=== PATIENT | female | born 1950 | race Caucasian/White ===

== ENCOUNTER → 2016-12-09 | Outpatient (CLI) | payer BC ==
[~2016-12-09] MED LIST: ACET-24 PO; ASPEC325 PO; CALC500C70 PO; CLIN300C2 PO; DOCU-94 PO; FRRG PO; LEVO500T19 PO; LISI20TA3 PO; MORP-157 PO; MULT-506 PO; POLY335019 PO; RXC5 PO; ULT50X PO; VITAMIN B-12 IM
--- NOTE | 2016-12-09 16:44 | MAMMOGRAPHY REPORT ---
BILATERAL DIGITAL SCREENING MAMMOGRAM WITH CAD: 12/09/2016 CLINICAL HISTORY: Routine screening. Patient has no complaints. TECHNIQUE: Bilateral CC, MLO, repeat cc views with the nipples in profile and repeat left MLO views were obtained. Current study was also evaluated with a Computer Aided Detection (CAD) system. COMPARISON: Comparison is made to exams dated: 01/31/2015 mammogram and 01/25/2014 mammogram - [facility] Catarino Adames. BREAST COMPOSITION: The tissue of both breasts is almost entirely fatty. FINDINGS: There are scattered benign-appearing punctate microcalcifications. No suspicious mass, ar chitectural distortion or cluster of suspicious microcalcifications is seen. IMPRESSION: ACR BI-RADS CATEGORY 1: NEGATIVE There is no mammographic evidence of malignancy. A 1 year screening mammogram is recommended. The p atient will receive written notification of the results. Approximately 10% of breast cancers are not detected with mammography. A negative mammographic repor t should not delay biopsy if a clinically suggestive mass is present. Yesica Fay M.D. ay/:12/09/2016 15:43:55 Yarn Dyer: Radha SOLOMON(R)(M), [facility] letter sent: Normal 1/2 BI-RADS Code: ACR BI-RADS Category 1: Negative
== END | disposition home or self-care (01) ==
LOC: C.MAMM 13:28
PROVIDERS: ATTEND Family Medicine
DX: Z12.31 Encounter for screening mammogram for malignant neoplasm of breast (principal)

== ENCOUNTER 2017-03-09 05:08 | Inpatient (IN) | payer BC, OTHER ==
[2017-02-09 10:47] VITALS: Ht 160 cm; Wt 139.6 kg
--- NOTE | 2017-02-09 11:17 | PAT Medication Instructions ---
Service Date Feb 09, 2017. Current Home Medication List Calcium/Vitamin D (Os-Brady 500 Plus D), 2 TAB PO QAM Clindamycin Hcl (Cleocin), 600 MG PO UD PRN for RN Lisinopril (Prinivil), 20 MG PO QAM Multivitamin (Multivitamin), 1 TAB PO QAM [Vitamin B-12], 1,000 MCG IM Q3 MONTHS Medication Instructions For Your Scheduled Surgery Clindamycin Hcl (Cleocin), 600 MG PO UD PRN for RN (prior to dental procedures only) - Continue as directed: [Vitamin B-12], 1,000 MCG IM Q3 MONTHS - Hold the following medications the morning of surgery: Lisinopril (Prinivil), 20 MG PO QAM Multivitamin (Multivitamin), 1 TAB PO QAM Calcium/Vitamin D (Os-Brady 500 Plus D), 2 TAB PO QAM If you have any questions please call us at [phone] or [phone] or [phone]
--- NOTE | 2017-02-09 12:04 | DIAGNOSTIC IMAGING REPORT ---
CHEST PREADMISSION(PA/LAT) CLINICAL HISTORY: PAT preoperative evaluation COMPARISON STUDY: 09/14/2013 FINDINGS: The bones soft tissues and hemidiaphragms are normal. The cardiomediastinal silhouette is normal. The lungs are clear. The pulmonary vasculature is normal. IMPRESSION: Negative chest. The above report was generated using voice recognition software. It may contain grammatical, syntax or spelling errors. Electronically signed by: Yves Burroughs M.D. 02/09/2017 12:02 PM Dictated Date/Time: 02/09/2017 12:02 PM
[2017-02-09 12:28] LABS: BASO % 0.3 %; BASO ABS # 0.02 K/uL (0-0.2); COMPLETE YES; EOS % 2.4 %; HEMATOCRIT 40.2 % (37-47); IG% 0.3 %; LYMPH % 35.8 %; LYMPH ABS # 2.11 K/uL (1.2-3.4); MEAN CELL VOLUME 92.8 fL (80-100); MEAN CORPUSCULAR HEMOGLOBIN 30.9 pg (25-34); MEAN CORPUSCULAR HGB CONC 33.3 g/dl (32-36); MEAN PLATELET VOLUME 10.9 fL (7.4-10.4); MONO % 8.1 %; NEUT % 53.1 %; PLATELET COUNT 193 K/uL (130-400); RED BLOOD COUNT 4.33 M/uL (4.2-5.4); WHITE BLOOD COUNT 5.89 K/uL (4.8-10.8)
[2017-02-09 13:32] LABS: BUN/CREATININE RATIO 18.2 (10-20); C-REACTIVE PROTEIN 0.71 mg/dl (0-0.29); CALCIUM 9.3 mg/dl (8.5-10.1); CREATININE 1.1 mg/dl (0.60-1.20); POTASSIUM 4.5 mmol/L (3.5-5.1)
--- NOTE | 2017-03-05 08:13 | HISTORY & PHYSICAL EXAMINATION ---
DATE OF ADMISSION: 03/09/2017 CHIEF COMPLAINT: Left knee pain. HISTORY OF PRESENT ILLNESS: The patient is a 67-year-old female who is now 3 years out from right knee replacement doing well. She has a long history of left knee pain and discomfort. She describes it has gotten worse over the past several years. Initially, she was pretty responsive to injections, but this has become less successful over time. She has constant pain in her knee. She has pain with every step. The more she walks, the more she hurts and the more she limps. She has got up with the pain and would like to have her left knee replaced. Once again, she is happy with her right knee replacement. Her walking tolerance is limited. She has nighttime pain. PAST MEDICAL HISTORY: 1. Morbid obesity with a BMI of 55. 2. Varicose veins. PREVIOUS SURGICAL HISTORY: Include: 1. Gastric bypass surgery in 2001. 2. Multiple hernia operations. 3. Cholecystectomy. 4. Hysterectomy. 5. Tonsillectomy. 6. Appendectomy. 7. Right knee replacement done 10/06/2013. ALLERGIES: CECLOR, WHICH CAUSES HIVES, ERYTHROMYCIN, AMOXICILLIN, SULFA, CEPHALOSPORINS. CURRENT MEDICINES: Include: 1. Lisinopril 20 mg a day. 2. Vitamin B12 every 3 months. 3. Calcium with D. 4. Vitamins. 5. 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 SOCIAL HISTORY: A 67-year-old white female. She is single. She does live by herself. Rare alcohol intake. FAMILY HISTORY: Significant for kidney cancer. REVIEW OF SYSTEMS: Negative for diabetes, neurologic problems, vascular problems, bleeding disorders. Denies any chest pain or shortness of breath. No history of DVT or PE. PHYSICAL EXAMINATION: GENERAL: Reveals a healthy pleasant, middle-aged female. She looks to be in reasonably good health. HEAD, EYES, EARS, NOSE, AND THROAT EXAMINATION: Benign. NECK: Supple. No lymphadenopathy. LUNGS: Clear to auscultation. HEART: Regular rate and rhythm. ABDOMEN: Soft, nontender, nondistended. EXTREMITY EXAMINATION: Grossly neurovascularly intact except as follows: Examination of the left knee reveals the patient walks with a waddling gait. She does limp on the left side. She has got a large soft tissue envelope. Small knee effusion. Range of motion 0-120. Good straight leg raise. No pain with hip motion. X-RAYS: X-rays of the left knee were reviewed. It shows advanced left knee DJD. She has complete loss of her medial joint space. She has got diffuse osteopenia. 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 ASSESSMENT: A 67-year-old white female with history of gastric bypass surgery in the past as well as knee replacement 3 years ago with advanced left knee degenerative joint, unresponsive to conservative treatment. She would like to have her left knee replaced. PLAN: We are going to the operating room and do a left total knee replacement. The risks and benefits of this procedure were explained to the patient including but not limited to DVT, PE, , infection, neurological injury, vascular injury, bleeding problems, pain, limited range of motion, stiffness, failure to relieve her symptoms, incomplete relief of symptoms, need for further surgery in the future, fracture, leg length inequality, nerve palsy, persistent pain, failure of the implants, failure of her bone, loosening and need for revision surgery. The patient understands and desires to proceed. Informed consent was obtained. The patient does have this allergy to cephalosporins and will likely give her vancomycin preoperatively. We may need to use a stem in the tibia due to her osteoporosis. She is planning to be discharged to home and her daughter is going to come stay with her along with some home health.
[2017-03-09] VITALS (9 sets, daily range): BP systolic 97–131; BP diastolic 61–75; PULSE 67–83; TEMP 36.3–36.8; O2SAT 92–100
[~2017-03-09] VITALS: Ht 160 cm; Wt 139.6 kg
[~2017-03-09 05:08] MED LIST changes: -ACET-24 PO; -ASPEC325 PO; -DOCU-94 PO; -FRRG PO; -LEVO500T19 PO; -MORP-157 PO; -POLY335019 PO; -RXC5 PO; -ULT50X PO
[2017-03-09] MEDS ORDERED: SCOPOLAMINE 1.5 MG TDSY TD SCH (06:00)
[2017-03-09] MEDS ORDERED: LACTATED RINGER'S 1000ML 1,000 ML IV SCH ×2 (06:00)
[2017-03-09] MEDS ORDERED: ACETAMINOPHEN 500 MG TAB PO SCH (06:00)
[2017-03-09] MEDS ORDERED: BUPIVACAINE LIPOSOME 266 MG, BUPIVACAINE/EPINEPHRINE INJ 50 ML, SODIUM CHLORIDE 0.9% PF... INFIL SCH ×3 (06:00)
[2017-03-09] MEDS ORDERED: GABAPENTIN 300 MG CAP PO SCH (06:00)
[2017-03-09] MEDS ORDERED: LACTATED RINGER'S 1000ML 500 ML IV ONE (06:00)
[2017-03-09] MEDS ORDERED: VANCOMYCIN INJ 2,000 MG in SODIUM CHLORIDE 0.9% 500ML 500 ML IV SCH ×2 (06:00→18:00)
[2017-03-09] MEDS ORDERED: FAMOTIDINE 20 MG TAB PO SCH (06:00)
[2017-03-09] MEDS ORDERED: METOCLOPRAMIDE HCL 10 MG TAB PO SCH (06:00)
[2017-03-09] MEDS ORDERED: PROPOFOL IV EMULSION 10 MG/ML 20 ML VIAL IV ONE ×3 (06:13→07:32)
[2017-03-09] MEDS ORDERED: MIDAZOLAM HCL 1 MG/ML 2ML VIAL ONE ×3 (06:13→07:56)
[2017-03-09] MEDS ORDERED: FENTANYL CITRATE INJ 50 MCG/1 ML 2 ML VIAL ONE (06:13)
[2017-03-09] MEDS ORDERED: BUPIVACAINE 0.5 % 5 MG/1 ML PF 10ML VIAL ONE (06:25)
[2017-03-09] MEDS ORDERED: BUPIVACAINE 0.25% 30 ML VIAL ONE (06:25)
[2017-03-09] MEDS ORDERED: SODIUM CHLORIDE 0.9% PF 50 ML VIAL ONE (06:28)
[2017-03-09] MEDS ORDERED: BUPIVACAINE LIPOSOME 1/3% 266 MG/20 ML VIAL INFIL ONE (06:28)
[2017-03-09] MEDS ORDERED: TRANEXAMIC ACID INJ 1,000 MG in SODIUM CHLORIDE 0.9% 100ML 100 ML IV SCH ×2 (06:30→12:00)
--- NOTE | 2017-03-09 06:49 | History & Physical Bridge Note ---
H&P Re-Evaluation Bridge Note: I have examined the patient, reviewed the History & Physical and in the interval since the performance of the History & Physical I have noted the following changes of clinical significance: No changes noted
[2017-03-09] MEDS ORDERED: BUPIVACAINE/EPINEPHRINE 0.5% MPF 1:200,000 10 ML VIAL ONE (07:09)
[2017-03-09] MEDS ORDERED: BACITRACIN 50000 UNIT VIAL ONE (07:10)
[2017-03-09] MEDS ORDERED: ONDANSETRON INJ 2 MG/ML 2 ML VIAL ONE (07:16)
[2017-03-09] MEDS ORDERED: EpHEDrine SULFATE 50MG/5ML SYR ONE (07:16)
[2017-03-09] MEDS ORDERED: PHENYLEPHRINE 100MCG/ML 5ML SYR ONE (07:16)
[2017-03-09] MEDS ORDERED: PHENYLEPHRINE HCL INJ 10 MG/ML VIAL ONE (07:31)
[2017-03-09] MEDS ORDERED: EpHEDrine SULFATE INJ 50 MG/ML AMP ONE (07:31)
[2017-03-09] MEDS ORDERED: ONDANSETRON INJ 2 MG/ML 2 ML VIAL IV PRN (08:00)
[2017-03-09] MEDS ORDERED: EpHEDrine SULFATE INJ 50 MG/ML AMP IV PRN (08:00)
[2017-03-09] MEDS ORDERED: ATROPINE SULFATE 0.1 MG/ML 5ML SYR IV PRN (08:00)
--- NOTE | 2017-03-09 09:03 | [facility] Post Operative Brief Note ---
Immediate Operative Summary Operative Date Mar 09, 2017. Pre-Operative Diagnosis Left Knee Degenerative Joint Disease Post-Operative Diagnosis Left Knee Degenerative Joint Disease Procedure(s) Performed Left Total Knee Arthroplasty, Cemented Surgeon Dr. Hurst Consulting Practice Manager Surgeon(s) Wisam Pinzon PA-C Estimated Blood Loss 50 mL Findings Left Knee DJD Fluids (cc crystalloids) 2000 cc Specimens A: Left Knee Bone and Tissue Drains None Anesthesia Spinal Complication(s) None Disposition Recovery Room / PACU
[2017-03-09] MEDS ORDERED: BISACODYL 10 MG SUPP PR PRN (09:15)
[2017-03-09] MEDS ORDERED: ALUMINUM/MAGNESIUM/SIMETH (MAALOX MAX) 30 ML UDC PO PRN (09:15)
[2017-03-09] MEDS ORDERED: ZOLPIDEM TARTRATE 5 MG TAB PO PRN (09:15)
[2017-03-09] MEDS ORDERED: MAGNESIUM HYDROXIDE SUSP 30 ML UDC PO PRN (09:15)
[2017-03-09] MEDS ORDERED: HYDROmorphone INJ 0.5 MG/0.5 ML SYR IV PRN (09:15)
[2017-03-09] MEDS ORDERED: METOCLOPRAMIDE HCL INJ 5 MG/ML 2 ML VIAL IV PRN (09:15)
--- NOTE | 2017-03-09 09:28 | DIAGNOSTIC IMAGING REPORT ---
TWO VIEWS LEFT KNEE CLINICAL HISTORY: Postoperative examination. FINDINGS: AP and crosstable lateral portable views of the left knee are obtained. A left knee arthroplasty is in near anatomic alignment. There has been undersurface remodeling of the patella. No acute fracture is seen. There are expected postoperative changes around the knee including skin clips, soft tissue edema, and subcutaneous gas. IMPRESSION: Expected postoperative changes status post left knee arthroplasty. No acute fracture is seen. Electronically signed by: Noel Pedroza M.D. 03/09/2017 9:27 AM Dictated Date/Time: 03/09/2017 9:27 AM
--- NOTE | 2017-03-09 09:38 | Anesthesiology Progress Note ---
Anesthesia Post Op Note Date & Time Mar 09, 2017 at 09:38 Vital Signs Pain Intensity: 0 Vital Signs Past 12 Hours Date Time Temp Pulse Resp B/P (MAP) Pulse Ox O2 Delivery O2 Flow Rate FiO2 03/09/17 09:35 73 16 110/45 100 Nasal Cannula 3 03/09/17 09:25 74 16 106/72 100 Nasal Cannula 3 03/09/17 09:15 73 16 137/59 100 Nasal Cannula 3 03/09/17 09:08 36.2 83 16 98/60 96 Nasal Cannula 3 03/09/17 05:59 36.8 70 18 128/61 Room Air Notes Mental Status: alert / awake / arousable, participated in evaluation Pt Amnestic to Procedure: No Nausea / Vomiting: adequately controlled Pain: adequately controlled Airway Patency, RR, SpO2: stable & adequate BP & HR: stable & adequate Hydration State: stable & adequate Neuraxial Anesthesia: was administered, sensory block is resolving Anesthetic Complications: no major complications apparent Anesthetic Complications: level of amnesia was appropriate for mac
--- NOTE | 2017-03-09 11:18 | OPERATIVE REPORT ---
DATE OF OPERATION: 03/09/2017 SURGEON: Dr. Charlie Hurst. PEN MAKER: MERE Li PREOPERATIVE DIAGNOSIS: Left knee degenerative joint disease. POSTOPERATIVE DIAGNOSIS: Same. PROCEDURE PERFORMED: Left cemented posterior stabilized total knee arthroplasty. COMPLICATIONS: None. ESTIMATED BLOOD LOSS: 50 mL. FLUID REPLACEMENT: 2000 mL crystalloid fluid replacement. ANESTHESIA: Spinal with adductor canal block. DRAINS: None. SPECIMENS: Left knee sent for pathology. TOURNIQUET TIME: 70 minutes at 350 mmHg. OPERATIVE INDICATIONS: The patient is a 67-year-old morbidly obese female with a BMI of 55, who has had a long history of bilateral knee pain and discomfort. She underwent a right knee replacement 3 years ago and has done well with this. She did have gastric bypass surgery many years ago. She continues to be bothered by limiting left knee pain. She failed conservative treatment. X-rays revealed advanced left knee DJD and she elected to proceed with total knee arthroplasty. OPERATIVE FINDINGS: Operative findings revealed advanced left knee DJD. She had grade 4 [id number] disease in all 3 compartments, most severe in the medial and patellofemoral compartments. She had a varus deformity to her knee. Very large soft tissue envelope. She had osteophytes in all 3 compartments. Her bone was fairly osteopenic. OPERATIVE IMPLANTS: Operative implants consisted of: 1. Biomet Vanguard size 62.5 left posterior stabilized femoral component. 2. Biomet size 71 tibial tray. 3. A 10 mm posterior stabilized polyethylene insert. 4. A 31 x 8 All-Poly patella. OPERATIVE PROCEDURE: The patient taken to the operating room, identified and placed on the operating table in supine position. All contact areas were appropriately padded. IV antibiotics were provided by anesthesia team. A spinal anesthetic and adductor canal block provided in the holding area. Lane catheter was placed in sterile fashion. A left thigh tourniquet was then placed. Left lower extremity was then prepped and draped in the usual sterile fashion. The left leg was elevated and exsanguinated with Esmarch and tourniquet was placed at 350 mmHg. An anterior approach of the left knee was then performed through a longitudinal incision centered over the patella. Sharp dissection was carried out through the subcutaneous tissues down to the level of the extensor mechanism. Medial parapatellar arthrotomy incision was made. Some subperiosteal dissection was carried out medially. The fat pad was resected from beneath the patellar tendon. The lateral patellofemoral ligament was released. The patella was subluxated laterally and the knee was flexed. The osteophytes were taken off the distal femur. The ACL and PCL were then released from the distal femur. Even doing this, I had difficulty exposing the tibia. Therefore, we elected to cut the femur first. The distal femur was entered with a sharp drill. The intramedullary canal was suctioned. A left 5 degree valgus cutting guide was placed. Distal femoral cutting block was pinned in place. Distal femoral cut was made to take an additional 3 mm of bone off the distal femur. The femur was then sized to a size 62.5. We downsized this slightly. The AP cutting block was pinned parallel to the epicondylar axis, which was 5 degrees of external rotation. The anterior cut, anterior chamfer, posterior cut, posterior chamfer cuts were made. Box cutting guide was placed and adjusted slightly lateral and the box cut was made. The knee was flexed. At this point, I could subluxate the tibia anteriorly. The tibial eminence was resected with the use of a saw. A long intramedullary tommy was placed. The cutting block was placed on the IM guide and the proximal tibial cut was made to remove 2 mm of bone from the most deficient aspect of the medial tibial plateau. Tibia was sized to a size 71. I tried to maximize coverage due to soft bone. Proximal tibial cut was made. Some osteophytes were taken off the medial and posteromedial side of the tibia. The femoral trial from inside the knee was flexed. The remnants of the medial and lateral menisci were excised. The osteophytes were taken off the posterior aspect of the femur. Trial femoral component was placed. Tibial tray was pinned in maximum external rotation and drill and stem punch were used to create defect in proximal tibia for the tibial tray. The knee was then trialed and a 10 mm insert fit most appropriately. Attention was then drawn to the patella. The patella was cleaned of all soft tissues. Patellar thickness measured 21 mm, cut down to 13. It was sized to a size 31 patella. The lateral osteophyte was removed. Some other additional osteophytes were removed from around the patella. The patella button was placed. Knee was taken through range of motion and the patella tracked nicely with no thumbs test. Attention was then drawn toward placement of the permanent components. All trial components were removed. A bone plug was placed in the distal femur to limit blood loss. I also placed a bone plug in the tibia to limit cement extravasation. The wound was irrigated with copious amounts of pulsatile lavage solution. A double batch of Palacos G cement was mixed. A left size 62.5 posterior stabilized femoral component, size 71 tibial tray, 10 mm posterior stabilized polyethylene insert, and a 31 x 8 All-Poly patella were then cemented in place. Knee was brought out into full extension until cement hardened. A final cement check was then performed. Pericapsular tissues were injected with 85 mL of a combination of 20 mL of Exparel, 30 mL of normal saline, and 25 mL of 0.5% Marcaine with epinephrine. The patient did receive 1 gram of tranexamic acid. The tourniquet was then let down for final tourniquet time of 70 minutes. Hemostasis was assured with use of electrocautery. The extensor mechanism was then closed with a combination of #1 PDS suture and #1 Vicryl suture in a [id number] fashion. Extensor mechanism was checked and found to be intact. Subcutaneous tissues were then closed with 2-0 Dexon suture in a buried interrupted fashion. Skin was closed with skin amirah. The leg was then cleaned and dried and a sterile dressing of Xeroform, 4 x 4, sterile cast padding and Timothy bandage were applied. The patient then transferred to the recovery room in stable condition. The patient tolerated the procedure well with no complications. All needle and sponge counts were correct at the end of the operation. I attest to the content of the Intraoperative Record and any orders documented therein. Any exception s are noted below.
[2017-03-09] MEDS ORDERED: PNEUMOCOCCAL POLYSACCHARIDES 25 MCG/0.5 ML VIAL/SYR IM. ONE (11:30)
[2017-03-09] MEDS ORDERED: PNEUMOCOCCAL ADMINISTRATION CHARGE ONE (11:30)
[2017-03-09] MEDS: KETOROLAC TROMETHAMINE 15 MG/ML VIAL IV. SCH ×3 (12:03→23:36)
[2017-03-09] MEDS: D5W AND 1/2NSS + 20MEQ KCL 1,000 ML IV SCH ×3 (12:20→23:35)
[2017-03-09] MEDS: FERROUS GLUCONATE 324 MG TAB PO SCH ×2 (12:22→18:06)
--- NOTE | 2017-03-09 13:32 | PROGRESS NOTE ---
DATE: 03/09/2017 DATE: 03/09/2017 SUBJECTIVE: A 67-year-old white female postop from a left knee replacement. She is doing well. Some pain but manageable. No chest pain or shortness of breath. Not feeling dizzy or lightheaded. OBJECTIVE: VITAL SIGNS: Temperature is 36.3. Vital signs stable. PHYSICAL EXAMINATION: GENERAL: Reveals a healthy pleasant elderly female. She is lying in bed, looks pretty comfortable. LUNGS: Clear to auscultation. HEART: Regular rate and rhythm. ABDOMEN: Soft, nontender, nondistended. EXTREMITY EXAMINATION: Grossly neurovascularly intact except as follows: Examination of the left lower extremity reveals the leg to be well aligned. Dressing is clean, dry and intact. She can dorsiflex and plantarflex her foot appropriately. She is neurologically intact. X-RAYS: X-rays of the left knee from recovery room were reviewed. It shows a cemented posterior stabilized total knee arthroplasty. The components looked to be in good position. No signs of problems. ASSESSMENT: A 67-year-old white female postop from a left knee replacement, doing well. Pain is controlled. She is neurologically intact. PLAN: 1. DVT prophylaxis including thigh-high TEDs, SCDs, and aspirin twice a day. 2. PT/OT. Weightbearing as tolerated. Left total knee protocol. 3. Pain control. Doing pretty well with current pain regimen. 4. IV antibiotics x24 hours. 5. Disposition: She is planning to be discharged to home with some home health. The family is going to assist in her care.
[2017-03-09] MEDS: ACETAMINOPHEN 500 MG TAB PO SCH ×2 (13:39→21:01)
[2017-03-09] MEDS: OXYCODONE HCL IR 5 MG TAB (IMMEDIATE RELEASE) PO PRN (13:42)
[2017-03-09] MEDS: DOCUSATE SODIUM 100 MG CAP PO SCH (21:01)
[2017-03-09] MEDS: SENNA 8.6 MG TAB PO SCH (21:01)
[2017-03-09] MEDS: TAPENTADOL ER 50 MG TABCR PO SCH (21:01)
[2017-03-09] MEDS: ASPIRIN 325 MG ECTAB PO SCH (21:01)
[2017-03-09] MEDS ORDERED: MORP-157 PO (21:47)
[2017-03-09] MEDS ORDERED: FRRG PO (21:47)
[2017-03-09] MEDS ORDERED: ACET-24 PO (21:47)
[2017-03-09] MEDS ORDERED: ASPEC325 PO (21:47)
[2017-03-09] MEDS ORDERED: RXC5 PO (21:47)
--- NOTE | 2017-03-09 21:49 | Discharge Instructions ---
Discharge Instructions Date of Service Mar 09, 2017. Admission Reason for Admission: Left Knee Degenerative Joint Disease Discharge Discharge Diagnosis / Problem: Left Knee Replacement Discharge Goals Goal(s): Decrease discomfort, Improve function, Increase independence, Improve disease control, Therapeutic intervention Activity Recommendations Activity Limitations: per Instructions/Follow-up section Weightbearing Status: Left weightbearing . Instructions / Follow-Up Instructions / Follow-Up ACTIVITY RECOMMENDATIONS: Physical Therapy: * You will go to physical therapy three times each week for four to six weeks after your surgery in order to regain your knee range of motion and to retrain your knee to work properly. * It is just as important to make sure you are getting your knee perfectly straight as it is to regain your knee bend. * Taking a pain pill an hour before therapy can help you have a more productive and comfortable therapy session. Home Exercise: * You were shown a series of exercises (heel props, heel slides, etc.) in the hospital. Do these exercises three to four times each day including the exercises you were shown in physical therapy. Walking: * Get up and walk several times each day. For the first four weeks, try not to stand or walk for more than one hour at a time. If you do stand or walk for more than one hour, you will not hurt anything, but your knee and leg will likely swell. * As you feel comfortable, you may change from the walker or crutches to a cane and then to independent walking. MEDICATIONS: New Medicine: * You will likely be taking one or more of these medications: 1. MS Contin - A long-acting pain medication. Take 1 tablet twice a day for the first ten days to decrease your baseline level of pain. 2. Oxycodone - A quick and shorter-acting pain medication. Take one to two tablets every four to six hours to lessen your pain. 3. Iron Sulfate - Take three times each day for the month after surgery to help you replace the blood lost during surgery. 4. Aspirin - Thins your blood to lessen the chance of forming a blood clot. * The most common side effects of pain medicine and iron are nausea and constipation. If nausea or constipation is too much of a problem or if you have any questions about your new medicines or doses, call [facility] at . We will try to help you manage these issues. VERY IMPORTANT TO READ AND REVIEW" Pain: * The immediate post-operative period after knee replacement surgery is often quite painful. * You are given a prescription for pain medicine. You should take it, as directed, when you need it, especially before physical therapy and before going to bed. Pain that interferes with sleep is very common and can last several months. * You will likely need pain medicine for the first four to six weeks. It will not stop all of the pain. The pain will lessen and as you feel better, you may change to milder pain medicine such as Tylenol. * The most common side effects of pain medicine are nausea and constipation, so don't take more than you need. SPECIAL CARE INSTRUCTIONS: TEDs/Elastic Stockings: * The white elastic stockings help limit swelling and prevent blood clots from forming in your legs. The more you wear them, the more they work. * Wear them for six weeks after knee replacement surgery and four weeks after partial knee replacement. Prevention of Infection: * Take antibiotics one hour before any dental cleaning, dental work, urological procedure, gastrointestinal procedure or any invasive surgery in order to prevent your new joint from getting infected. * You may get the antibiotics from the doctor performing the procedure or you may call our office at before and we will call in a prescription to the pharmacy of your choice. Things to Watch For: * Drainage from the incision site that occurs more than one week after your surgery. * Severely increased knee/leg pain or swelling. * Increased redness at the incision site. * Fever above 102 degrees Fahrenheit. * Unusual chest pain or shortness of breath. * Unusual pain or burning with urination. Call [facility] at with any of the above problems or if you have any questions about your medicines or recovery. FOLLOW UP VISIT: Make an appointment to see your doctor for approximately two weeks after surgery for a progress check and staple removal by calling the office at . Current Hospital Diet Patient's current hospital diet: Regular Diet Discharge Diet Recommended Diet: Regular Diet Procedures Procedures Performed: Left Total Knee Arthroplasty, Cemented Pending Studies Studies pending at discharge: no Medical Emergencies . Who to Call and When: Medical Emergencies: If at any time you feel your situation is an emergency, please call [phone] immediately. . Non-Emergent Contact Non-Emergency issues call your: Surgeon . "Provider Documentation" section prepared by Charlie Husrt. . VTE Core Measure Inpt VTE Proph given/why not?: Other Anticoagulation, T.E.D. Stockings, SCD's
[2017-03-10 03:56] VITALS: BP 93/60; PULSE 78; TEMP 36.7; O2SAT 93
[2017-03-10] MEDS: OXYCODONE HCL IR 5 MG TAB (IMMEDIATE RELEASE) PO PRN ×3 (04:29→14:43)
[2017-03-10] MEDS: D5W AND 1/2NSS + 20MEQ KCL 1,000 ML IV SCH (04:58)
[2017-03-10 05:29] LABS: HEMATOCRIT 30.6 % (37-47); MEAN CELL VOLUME 92.4 fL (80-100); MEAN CORPUSCULAR HEMOGLOBIN 30.5 pg (25-34); MEAN PLATELET VOLUME 10.2 fL (7.4-10.4); PLATELET COUNT 121 K/uL (130-400); RED BLOOD COUNT 3.31 M/uL (4.2-5.4); WHITE BLOOD COUNT 5.76 K/uL (4.8-10.8)
[2017-03-10] MEDS: KETOROLAC TROMETHAMINE 15 MG/ML VIAL IV. SCH ×3 (05:35→18:19)
[2017-03-10] MEDS: ACETAMINOPHEN 500 MG TAB PO SCH ×3 (05:36→21:05)
[2017-03-10 05:48] LABS: BUN/CREATININE RATIO 15.4 (10-20); CALCIUM 7.8 mg/dl (8.5-10.1); CREATININE 1.1 mg/dl (0.60-1.20); POTASSIUM 4.5 mmol/L (3.5-5.1)
[2017-03-10 07:04] VITALS: BP 115/69; PULSE 79; TEMP 36.8; O2SAT 92
[2017-03-10] MEDS ORDERED: LISINOPRIL 20 MG TAB PO SCH (09:00)
[2017-03-10] MEDS ORDERED: MULTIVITAMIN TAB PO SCH (09:00)
[2017-03-10] MEDS: TAPENTADOL ER 50 MG TABCR PO SCH ×2 (09:37→21:03)
--- NOTE | 2017-03-10 09:37 | PROGRESS NOTE ---
DATE: 03/10/2017 SUBJECTIVE: A 67-year-old female postop day 1 from a left total knee replacement. She is doing pretty well. Pretty painful at night but doing better after she has taken some pain medicine this morning. Denies any chest pain or shortness of breath. Not feeling dizzy or lightheaded. OBJECTIVE: VITAL SIGNS: Temperature 36.8. Vital signs stable. PHYSICAL EXAMINATION: GENERAL: Reveals a healthy, pleasant middle-aged female. She is sitting up in her bedside chair, looks pretty comfortable. EXTREMITIES: Examination of the left leg reveals the leg to be well aligned. Dressing is clean, dry and intact. No significant drainage. She can dorsiflex and plantarflex her foot appropriately. LABORATORY DATA: Hemoglobin 10.1, hematocrit 30.6. Electrolytes are stable. ASSESSMENT: A 67-year-old white female postop day 1 from left knee replacement, doing pretty well. Pain is reasonably well controlled. She is neurologically intact. PLAN: 1. DVT prophylaxis including thigh-high TEDs, SCDs and aspirin twice a day. 2. PT/OT. Weightbearing as tolerated. Left total knee protocol. 3. Pain control. Doing pretty well with current pain regimen. 4. Disposition: She is planning to be discharged to home with some home health once adequately recovered.
[2017-03-10] MEDS: MULTIVITAMIN TAB PO SCH (09:38)
[2017-03-10] MEDS: DOCUSATE SODIUM 100 MG CAP PO SCH ×2 (09:38→21:03)
[2017-03-10] MEDS: FERROUS GLUCONATE 324 MG TAB PO SCH ×3 (09:39→18:19)
[2017-03-10] MEDS: PANTOprazole SOD 40 MG TAB PO SCH (09:39)
[2017-03-10] MEDS: CALCIUM 600MG + VIT D 400 IU TAB PO SCH (09:39)
[2017-03-10] MEDS: ASPIRIN 325 MG ECTAB PO SCH ×2 (09:40→21:03)
[2017-03-10 11:00] VITALS: BP 91/57; PULSE 71; TEMP 36.7; O2SAT 90
[2017-03-10] MEDS: ONDANSETRON INJ 2 MG/ML 2 ML VIAL IV PRN (14:29)
[2017-03-10 15:05] VITALS: BP 98/61; PULSE 59; TEMP 36.7; O2SAT 92
[2017-03-10] MEDS: SENNA 8.6 MG TAB PO SCH (21:04)
[2017-03-10 22:54] VITALS: BP 112/62; PULSE 67; TEMP 36.7; O2SAT 94
[2017-03-11] VITALS (11 sets, daily range): BP systolic 64–114; BP diastolic 51–73; PULSE 63–93; TEMP 36.7–37; O2SAT 93–100
[2017-03-11] MEDS: KETOROLAC TROMETHAMINE 15 MG/ML VIAL IV. SCH ×2 (00:24→05:14)
[2017-03-11] MEDS: ACETAMINOPHEN 500 MG TAB PO SCH ×3 (05:14→22:09)
[2017-03-11] MEDS: OXYCODONE HCL IR 5 MG TAB (IMMEDIATE RELEASE) PO PRN (07:10)
[2017-03-11] MEDS: FERROUS GLUCONATE 324 MG TAB PO SCH ×3 (08:30→17:10)
--- NOTE | 2017-03-11 08:49 | Orthopedic Progress Note ---
Orthopedic Progress Note Date of Service Mar 11, 2017. Subjective Post OP Day: 2 Additional Notes: Pain controlled. c/o lightheadedness. She was seen and examined by Dr. Bazzi today. Objective N/V intact, dressing C/D/I, A&O x3, toes mobile Date Time Temp Pulse Resp B/P (MAP) Pulse Ox O2 Delivery O2 Flow Rate FiO2 03/11/17 08:00 37.0 73 16 87/53 (64) 94 Room Air 03/11/17 07:00 Room Air 03/10/17 22:54 36.7 67 22 112/62 (79) 94 Room Air 03/10/17 20:01 Room Air 03/10/17 16:50 Room Air 03/10/17 15:05 36.7 59 16 98/61 (73) 92 Room Air 03/10/17 11:00 36.7 71 16 91/57 (68) 90 Room Air Assessment & Plan Assessment: POD #2 LEFT TKA Plan: Patient was hypotensive again when vitals checked after rounds. She was lightheaded. She was assisted back to bed and placed supine. No chest pain or SOB. We will give her a fluid bolus this morning and recheck her blood pressure. Hold pain medication and lisinopril this morning. Discharge Planning Discharge Planning: home with home health (Plan to discharge home today depending how she does with PT and the lightheadedness. She had some anemia. Continue iron. We'll hold lisinopril today. ) Pain Management: other (continue current pain management. ) DVT Prophylaxis: TEDs, SCDs, ASA Therapy: Physical Therapy
[2017-03-11] MEDS: ONDANSETRON INJ 2 MG/ML 2 ML VIAL IV PRN (08:53)
[2017-03-11] MEDS: TAPENTADOL ER 50 MG TABCR PO SCH ×2 (09:00→20:34)
[2017-03-11] MEDS: MULTIVITAMIN TAB PO SCH (09:00)
[2017-03-11] MEDS: DOCUSATE SODIUM 100 MG CAP PO SCH ×2 (09:00→20:34)
[2017-03-11] MEDS: CALCIUM 600MG + VIT D 400 IU TAB PO SCH (09:00)
[2017-03-11] MEDS ORDERED: SODIUM CHLORIDE 0.9% 500ML 500 ML IV STA (09:10)
[2017-03-11] MEDS ORDERED: NURSING VERBAL MED ORDER ONE (09:15)
[2017-03-11] MEDS ORDERED: SODIUM CHLORIDE 0.9% 1000ML 1,000 ML IV SCH (10:00)
[2017-03-11] MEDS: ASPIRIN 325 MG ECTAB PO SCH ×2 (10:41→20:34)
[2017-03-11] MEDS: PANTOprazole SOD 40 MG TAB PO SCH (10:42)
[2017-03-11] MEDS ORDERED: TRAMADOL HCL 50 MG TAB PO PRN (15:00)
--- NOTE | 2017-03-11 15:49 | Medical Consult ---
Consultation Date of Consultation: Mar 11, 2017. Attending Physician: Charlie Hurst M.D. Reason for Consultation: Hypotension History of Present Illness This is a 67 yo F with PMHx of morbid obesity, HTN, osteoarthritis, and varicose veins who presented for an elective LKA by Dr. Hurst on 03/09/17, now POD #2. Hospital medicine has been consulted for hypotension. The patient normally has high BP and takes lisinopril 20 mg daily. This was held the past 2 days. She reports feeling lightheaded/dizzy once yesterday, and then again this morning. At that time her BP was checked and was 64/51, so was given NSS 500mL bolus. At present her BP remains low at 76/56. She reports needing to take pain medication about every 4 hours for pain, especially prior to working with PT/OT. Her plans for going home include home health PT/OT. Past Medical/Surgical History Medical Problems: (1) Biliary colic Status: Acute (2) Right upper quadrant abdominal pain Status: Acute Morbid Obesity Hypertension Surgical Hx: 1. Gastric bypass surgery in 2001. 2. Multiple hernia operations. 3. Cholecystectomy. 4. Hysterectomy. 5. Tonsillectomy. 6. Appendectomy. 7. Right knee replacement done 10/06/2013. Family History COPD (chronic obstructive pulmonary disease) MOTHER Carcinoma of kidney MOTHER BROTHER Coronary artery disease MOTHER GI bleeding FATHER Gallbladder disease MOTHER SISTER Hypertension BROTHER Social History Smoking Status: Never Smoker Drug Use: none Allergies Coded Allergies: Erythromycin (Verified Allergy, Severe, ERYTHEMA, ANALPHYLAXIS, 03/09/17) Cephalosporins (Verified Allergy, Intermediate, HIVES, 03/09/17) Penicillins (Verified Allergy, Intermediate, HIVES, 03/09/17) Sulfa Drugs (Verified Allergy, Mild, RASH, 03/09/17) Cefaclor (Verified Allergy, Unknown, UNKNOWN, 03/09/17) Nitrates, Organic (Verified Allergy, Unknown, UNKNOWN, 03/09/17) Nitrofurantoin (Verified Adverse Reaction, Severe, INEFFECTIVE, 03/09/17) Current Inpatient Medications Current Inpatient Medications Medications (Trade) Dose Ordered Sig/[place] Route Start Time Stop Time Status Last Admin Dose Admin Miscellaneous (Remove Transderm-Scop Patch) 1 ea Q72H N/A 03/12/17 06:00 03/12/17 06:01 Oxycodone HCl (Roxicodone Immediate Rel Tab) 1 TABLET FOR PAIN RATING... Q4H PRN PO 03/09/17 09:15 03/23/17 09:14 Future Hold 03/11/17 07:10 10 MG Acetaminophen (Tylenol Tab) 1,000 mg Q8 PO 03/09/17 14:00 04/08/17 13:59 03/11/17 14:29 1,000 MG Magnesium Hydroxide (Milk Of Magnesia Susp) 30 ml Q6H PRN PO 03/09/17 09:15 04/08/17 09:14 Bisacodyl (Dulcolax Supp) 10 mg DAILY PRN [place] 03/09/17 09:15 04/08/17 09:14 Senna (Senokot Tab) 17.2 mg HS PO 03/09/17 21:00 04/08/17 20:59 03/10/17 21:04 17.2 MG Docusate Sodium (coLACE CAP) 100 mg BID PO 03/09/17 21:00 04/08/17 20:59 03/10/17 21:03 100 MG Al Hydrox/Mg Hydrox/Simethicone (Maalox Max Susp) 15 ml Q4H PRN PO 03/09/17 09:15 04/08/17 09:14 Zolpidem Tartrate (Ambien Tab) 5 mg HSZ PRN PO 03/09/17 09:15 04/08/17 09:14 Multivitamins (Multivitamin Tab) 1 tab QAM PO 03/10/17 09:00 04/09/17 08:59 03/10/17 09:38 1 TAB Ondansetron HCl (Zofran Inj) 4 mg Q6H PRN IV 03/09/17 09:15 04/08/17 09:14 03/11/17 08:53 4 MG Metoclopramide HCl (Reglan Inj) 10 mg Q6H PRN IV 03/09/17 09:15 04/08/17 09:14 03/11/17 10:41 10 MG Ferrous Gluconate (Ferrous Gluconate Tab) 324 mg TIDM PO 03/09/17 12:00 04/08/17 11:59 03/10/17 18:19 324 MG Pantoprazole Sodium (Protonix Tab) 40 mg QAM PO 03/10/17 09:00 04/09/17 08:59 03/11/17 10:42 40 MG Aspirin (Ecotrin Tab) 325 mg BID PO 03/09/17 21:00 04/08/17 20:59 03/11/17 10:41 325 MG Tapentadol (Nucynta Er Tab) 50 mg Q12 PO 03/09/17 21:00 04/08/17 20:59 03/10/17 21:03 50 MG Calcium/Vitamin D (Caltrate Plus Tab) 2 tab QAM PO 03/10/17 09:00 04/09/17 08:59 03/10/17 09:39 2 TAB Lisinopril (Zestril Tab) 20 mg QAM PO 03/10/17 09:00 04/09/17 08:59 Future Hold 03/10/17 09:39 20 MG Sodium Chloride 1,000 ml @ 100 mls/hr Q10H IV 03/11/17 10:00 04/10/17 09:59 03/11/17 10:42 100 MLS/HR Tramadol HCl (Ultram Tab) 50 mg Q6 PRN PO 03/11/17 15:00 04/10/17 14:59 UNV Sodium Chloride 1,000 ml @ 125 mls/hr Q8H IV 03/11/17 15:15 04/10/17 15:14 UNV Review of Systems Constitutional: No fever, No chills, No sweats Eyes: No worsening of vision, No redness ENT: No sore throat, No trouble swallowing Respiratory: No cough, No sputum, No wheezing, No shortness of breath, No dyspnea on exertion Cardiovascular: No chest pain, No palpitations Abdomen: No pain, No nausea, No vomiting, No diarrhea Musculoskeletal: + joint pain (L knee pain), No swelling, No calf pain Neurologic: No memory loss, No numbness/tingling, No balance problems Psychiatric: No depression symptoms, No anxiety Endocrine: No fatigue Hematologic / Lymphatic: No abnormal bleeding/bruising, No clotting problems Integumentary: No rash, No itch Physical Exam Date Time Temp Pulse Resp B/P (MAP) Pulse Ox O2 Delivery O2 Flow Rate FiO2 03/11/17 15:04 36.8 67 20 76/52 (60) 100 Nasal Cannula 3.0 03/11/17 13:43 88/55 (66) 03/11/17 11:16 36.7 70 18 106/65 (79) 97 Nasal Cannula 2.0 03/11/17 10:37 68 18 94/59 (71) 93 Room Air 03/11/17 10:16 94 Nasal Cannula 2.0 03/11/17 08:57 64/51 (55) 03/11/17 08:45 63 74/51 (59) 03/11/17 08:00 37.0 73 16 87/53 (64) 94 Room Air 03/11/17 07:00 Room Air 03/10/17 22:54 36.7 67 22 112/62 (79) 94 Room Air 03/10/17 20:01 Room Air 03/10/17 16:50 Room Air General Appearance: WD/WN, no apparent distress, + obese (morbid) Head: normocephalic, atraumatic Eyes: normal inspection, EOMI ENT: hearing grossly normal, pharynx normal Neck: supple, thyroid normal Respiratory/Chest: lungs clear, normal breath sounds, no respiratory distress, no accessory muscle use, + pertinent finding (on 3L via NC) Cardiovascular: regular rate, rhythm, no murmur, normal peripheral pulses Abdomen/GI: normal bowel sounds, non tender, soft Back: normal inspection Extremities/Musculoskelatal: no calf tenderness, no pedal edema, + pertinent finding (+ L knee s/p TKA, amirah in place, wound edges are everted, intact, no signs of surrounding erythema or edema. Scar over right knee from previous TKA) Neurologic/Psych: alert, normal mood/affect, oriented x 3 Skin: normal color, warm/dry Assessment & Plan This is a 67 yo F with PMHx of morbid obesity, HTN, osteoarthritis, and varicose veins who presented for an elective LKA by Dr. Hurst on 03/09/17, now POD #2. Hypotension - Will reduce pain medication: dc IV and allow oxycodone 5 mg with severe pain. Ok with acetaminophen and tramadol as ordered. - Pt received 500 mL bolus of NSS today. Will start on maintenance fluids at 125mL/hr for now - encouraged oral fluid intake. - Check orthostatics - Trend Hgb with am labs. Prior to surgery Hgb was 13, now 10. Likely will drop again tomorrow. Transfuse if symptomatic or < 8. - Pt reports she had similar episode with BP after cholecystectomy where her lisinopril was reduced by 50%, and upon recheck as outpatient they needed to resume her normal home dose of lisinopril. - Continue to hold lisinopril and likely can resume on d/c home Left TKA, pod #2 - DVT ppx per primary team with ASA 325 mg daily - Planned home health therapy/rehab upon discharge - PT/OT Morbid Obesity - BMI 54.5 - Pt s/p gastric bypass. - Continue diet and exercise recommendations and regimen DVT ppx: teds, asa CODE STATUS: FULL Thank you for allowing us to see Mrs. Ace, please do not hesitate to call with questions. We will follow along. PA Physician Supervision Note: I interviewed and examined the patient. Discussed with Diamond Molina PAC and agree with findings and plan as documented in the note. Any exceptions or clarifications are listed here: None Patient postoperatively from a total left knee replacement who has some postoperative hypotension and mild acute blood loss anemia . patient states that with her previous cholecystectomy she had a prolonged hypotensive episode postoperatively which prompted the inpatient physicians previously to hold her lisinopril, upon being discharged, her blood pressure significantly increased and she had to resume her lisinopril implying this may be a perioperative effect which will resolve on its own. Fluid bolus was already given with the maintenance fluid, Her acute blood postop blood loss anemia we'll actually slightly worsen by tomorrow given the ivf ordered, and she may require transfusion vital signs show blood pressure below heart rate is regular not persistently tachycardic Heart is regular without murmurs her lungs are clear her abdomen normoactive bowel sounds her left knee wound is clean dry and intact does not appear to be significant hematoma Perioperative hypotension continue intravenous fluid hydration until the morning care not to exceed 2 L follow postoperative acute blood loss anemia and hold antihypertensive medications at this time resuming them on discharge Documented By: Liam Duque
[2017-03-11] MEDS: SODIUM CHLORIDE 0.9% 1000ML 1,000 ML IV SCH ×2 (17:09→23:43)
[2017-03-11] MEDS: SENNA 8.6 MG TAB PO SCH (20:34)
[2017-03-12 02:44] VITALS: BP_SYST 110; BP_SYST 83; BP_SYST 97; BP_DIAS 53; BP_DIAS 63; BP_DIAS 72; PULSE 112; PULSE 76; PULSE 97
[2017-03-12 05:51] LABS: HEMATOCRIT 27.4 % (37-47); MEAN CELL VOLUME 91.9 fL (80-100); MEAN CORPUSCULAR HEMOGLOBIN 31.5 pg (25-34); MEAN CORPUSCULAR HGB CONC 34.3 g/dl (32-36); MEAN PLATELET VOLUME 10.3 fL (7.4-10.4); PLATELET COUNT 137 K/uL (130-400); RED BLOOD COUNT 2.98 M/uL (4.2-5.4); WHITE BLOOD COUNT 6.26 K/uL (4.8-10.8)
[2017-03-12] MEDS: ACETAMINOPHEN 500 MG TAB PO SCH ×2 (06:05→13:22)
[2017-03-12 06:21] LABS: BUN/CREATININE RATIO 20.6 (10-20); CALCIUM 7.9 mg/dl (8.5-10.1); CREATININE 1.1 mg/dl (0.60-1.20); POTASSIUM 4.7 mmol/L (3.5-5.1)
[2017-03-12] MEDS: SODIUM CHLORIDE 0.9% 1000ML 1,000 ML IV SCH (07:21)
[2017-03-12 07:30] VITALS: BP_SYST 101; BP_SYST 118; BP_SYST 95; BP_DIAS 51; BP_DIAS 65; BP_DIAS 73; PULSE 86; PULSE 90; TEMP 36.9; O2SAT 91
[2017-03-12] MEDS: CALCIUM 600MG + VIT D 400 IU TAB PO SCH (08:28)
[2017-03-12] MEDS: FERROUS GLUCONATE 324 MG TAB PO SCH ×2 (08:28→12:26)
[2017-03-12] MEDS: DOCUSATE SODIUM 100 MG CAP PO SCH (08:28)
[2017-03-12] MEDS: PANTOprazole SOD 40 MG TAB PO SCH (08:29)
[2017-03-12] MEDS: MULTIVITAMIN TAB PO SCH (08:29)
[2017-03-12] MEDS: ASPIRIN 325 MG ECTAB PO SCH (08:29)
[2017-03-12] MEDS: TAPENTADOL ER 50 MG TABCR PO SCH (08:33)
--- NOTE | 2017-03-12 08:41 | Orthopedic Progress Note ---
Orthopedic Progress Note Date of Service Mar 12, 2017. Subjective Post OP Day: 3 Additional Notes: Still lightheaded but improving from yesterday. Headache today. No other complaints. Objective calves soft nontender, N/V intact, incision C/D/I, A&O x3, toes mobile Date Time Temp Pulse Resp B/P (MAP) Pulse Ox O2 Delivery O2 Flow Rate FiO2 03/12/17 07:30 36.9 86 18 95/65 (75) 91 Room Air 90 101/51 (68) 90 118/73 (88) 03/12/17 02:44 76 97/63 (74) 97 83/53 (63) 112 110/72 (85) 03/11/17 23:41 Room Air 03/11/17 22:52 36.8 93 22 94/60 (71) 93 Room Air 03/11/17 17:22 Room Air 03/11/17 16:17 102/63 (76) 94 Room Air 94/61 (72) 114/73 (87) 03/11/17 15:04 36.8 67 20 76/52 (60) 100 Nasal Cannula 3.0 03/11/17 13:43 88/55 (66) 03/11/17 11:16 36.7 70 18 106/65 (79) 97 Nasal Cannula 2.0 03/11/17 10:37 68 18 94/59 (71) 93 Room Air 03/11/17 10:16 94 Nasal Cannula 2.0 03/11/17 08:57 64/51 (55) 03/11/17 08:45 63 74/51 (59) Laboratory Results 24 Hours: Test 03/12/17 04:58 Hematocrit 27.4 % Hemoglobin 9.4 g/dL Assessment & Plan Assessment: POD #3 LEFT TKA Plan: She was seen and examined by Dr. Bazzi today. Hgb is 9.4 today. Continue Iron supplement. Hypotensive but is improving. Hospitalist service is following as well and assisting with blood pressure medication. Discharge Planning Discharge Planning: home with home health (Plan to discharge home today depending how she does with PT and the lightheadedness. She had some anemia. Continue iron. ) Pain Management: other (continue current pain management. ) DVT Prophylaxis: TEDs, SCDs, ASA Therapy: Physical Therapy Discharge Planning Notes: We'll tentatively plan on discharge today depending how she does with PT. We will have home health care social worker see her as well to discuss possible transfer to [facility].
[2017-03-12] MEDS ORDERED: ULT50X PO (14:27)
--- NOTE | 2017-03-12 14:49 | Hospitalist Progress Note ---
Hospitalist Progress Note Date of Service Mar 12, 2017. Subjective Pt evaluation today including: conversation w/ patient, physical exam Pt doing wlel and is preparing for discharge later this afternon. BP is back to normal, denies CP,SOB,Abd pain. Not lightheaded. BP just now in the room is 110 systolic. [facility], says her daughter is a RN at [facility] and will be helping to take care of her All Other Systems: Reviewed and Negative Objective Vital Signs Date Time Temp Pulse Resp B/P (MAP) Pulse Ox O2 Delivery O2 Flow Rate FiO2 03/12/17 13:36 36.9 90 18 91 Room Air 03/12/17 07:30 36.9 86 18 95/65 (75) 91 Room Air 90 101/51 (68) 90 118/73 (88) 03/12/17 07:15 Room Air 03/12/17 02:44 76 97/63 (74) 97 83/53 (63) 112 110/72 (85) 03/11/17 23:41 Room Air 03/11/17 22:52 36.8 93 22 94/60 (71) 93 Room Air 03/11/17 17:22 Room Air 03/11/17 16:17 102/63 (76) 94 Room Air 94/61 (72) 114/73 (87) 03/11/17 15:04 36.8 67 20 76/52 (60) 100 Nasal Cannula 3.0 Physical Exam General Appearance: no apparent distress, + obese (morbidly) Eyes: normal inspection, sclerae normal ENT: hearing grossly normal Neck: trachea midline Respiratory/Chest: lungs clear, normal breath sounds, no respiratory distress, no accessory muscle use Cardiovascular: regular rate, rhythm, no edema, no gallop, no murmur Abdomen: normal bowel sounds, non tender, soft (and morbidly obese) Extremities: no calf tenderness, + pertinent finding (left knee with amirah in place, no drainage or surrounding erythema from wound) Neurologic/Psychiatric: alert, normal mood/affect, oriented x 3 Skin: normal color, warm/dry, no rash Laboratory Results Last 24 Hours Test 03/12/17 04:58 White Blood Count 6.26 K/uL Red Blood Count 2.98 M/uL Hemoglobin 9.4 g/dL Hematocrit 27.4 % Mean Corpuscular Volume 91.9 fL Mean Corpuscular Hemoglobin 31.5 pg Mean Corpuscular Hemoglobin Concent 34.3 g/dl RDW Standard Deviation 44.0 fL RDW Coefficient of Variation 13.0 % Platelet Count 137 K/uL Mean Platelet Volume 10.3 fL Sodium Level 138 mmol/L Potassium Level 4.7 mmol/L Chloride Level 108 mmol/L Carbon Dioxide Level 28 mmol/L Anion Gap 2.0 mmol/L Blood Urea Nitrogen 23 mg/dl Creatinine 1.10 mg/dl Est Creatinine Clear Calc Drug Dose 70.2 ml/min Estimated GFR () 61.0 Estimated GFR (Non- 52.6 BUN/Creatinine Ratio 20.6 Random Glucose 114 mg/dl Calcium Level 7.9 mg/dl Assessment and Plan This is a 67 yo F with PMHx of morbid obesity, HTN, osteoarthritis, and varicose veins who presented for an elective LKA by Dr. Hurst on 17, now POD #3. Hypotension-on POD#2 BP was 60s-70s systolic, along with lightheadedness. Was bolused and lisinopril held. BPs today normal and asymptomatic. No evidence of bleeding with stable hgb today at 9-10, no signs of infection, or PE. Likely secondary to opioid pain meds, post-op volume depletion. - pain medication reduced: dc'd IV and allow oxycodone 5 mg with severe pain. Ok with acetaminophen and tramadol as ordered. -was started on maintenance fluids at 125mL/hr and now can dc - Continue to hold lisinopril and can resume on d/c home-restart tomorrow AM Left TKA, pod #3 - DVT ppx per primary team with ASA 325 mg bid x 30 days - Planned home health therapy/rehab upon discharge - PT/OT Morbid Obesity - BMI 54.5 - Pt s/p gastric bypass. - Continue diet and exercise recommendations and regimen DVT ppx: teds, asa CODE STATUS: FULL Dispo- to home today
[2017-03-12 15:26] VITALS: BP_SYST 114; BP_SYST 124; BP_SYST 98; BP_DIAS 62; BP_DIAS 71; BP_DIAS 74; PULSE 73; TEMP 36.8; O2SAT 94
--- NOTE | 2017-03-22 07:41 | DISCHARGE SUMMARY ---
ADMITTING PHYSICIAN AND SURGEON: Dr. Hurst. ADMITTING DIAGNOSIS: Left knee degenerative joint disease. SURGERY PERFORMED: Left total knee arthroplasty. SECONDARY DIAGNOSES: Morbid obesity, varicose veins, postoperative hypotension. HISTORY AND PHYSICAL EXAM: Well documented in the patient's chart. CONSULTS: Dr. Duque for postoperative hypotension. HOSPITAL COURSE: The patient was admitted on 03/09/2017 underwent total knee arthroplasty. He tolerated the procedure well. There were no complications. She was transferred to the PACU postoperatively and later to the orthopedic floor for further care. She was given vancomycin for antibiotic prophylaxis, CHERYL stockings, SCDs and aspirin for DVT prophylaxis. Hemoglobin, hematocrit and vital signs were monitored during her hospital stay. She did develop some postoperative anemia with a hemoglobin down to 9.4. She also had postoperative hypotension. She was getting lightheaded when standing or with physical therapy. Medicine consult was obtained and she was given a fluid bolus as well as continuous IV fluids. Her blood pressure did improve prior to discharge. There were no complications during her hospital stay. By postoperative day 3, she was tolerating a regular diet, pain was controlled with oral pain medicine. She was participating in physical therapy and had no signs or symptoms of deep vein thrombosis. On postop day 3, she was discharged home and set up with home health services. She was given printed discharge instructions including prescriptions for extra strength Tylenol, aspirin 325 mg b.i.d., iron supplement and tramadol. Continue her home medicines. Continue physical therapy, weightbearing as tolerated and CHERYL stockings. Follow up in 10-12 days or sooner if there are any problems or concerns.
== END 2017-03-12 16:00 | disposition home health service (06) | DRG 470 ==
LOC: C.ACU 05:08 → C.3E 06:35 → ENRESERV 09:35
PROVIDERS: ADMIT Orthopaedic Surgery Sports Medicine; ATTEND Orthopaedic Surgery Sports Medicine
PROC: 0SRD0J9 Replacement of Left Knee Joint with Synthetic Substitute, Cemented, Open Approach (ICD-10-PCS; principal; 2017-03-09 07:00)
DX: M17.12 Unilateral primary osteoarthritis, left knee (principal); Z68.43 Body mass index [BMI] 50.0-59.9, adult; I10 Essential (primary) hypertension; E66.01 Morbid (severe) obesity due to excess calories; Z98.84 Bariatric surgery status; I95.81 Postprocedural hypotension; Z96.651 Presence of right artificial knee joint

== ENCOUNTER 2017-03-14 11:36 | Inpatient (IN) | payer BC, OTHER ==
[~2017-03-14] VITALS: Ht 160 cm; Wt 149.0 kg
[~2017-03-14 11:36] MED LIST changes: +ACET-24 PO; +ASPEC325 PO; +FRRG PO; +MORP-157 PO; +ULT50X PO
[2017-03-14] MEDS ORDERED: SODIUM CHLORIDE 0.9% 1000ML 1,000 ML IV STA (12:01)
--- NOTE | 2017-03-14 12:21 | EMERGENCY ROOM VISIT NOTE ---
History Report prepared by Zachery: Madisyn Wilkins Under the Supervision of: Loco LoyolaO. First contact with patient: 11:58 Chief Complaint: CHEST PAIN Stated Complaint: CHEST DISCOMFORT/NUMBNESS Nursing Triage Summary: Heart fluttering. History of Present Illness The patient is a 67 year old female who presents to the Emergency Room with complaints of intermittent heart palpitations beginning 3 hours ago. The patient states that she had knee surgery 5 days ago and came home 3 days ago. She reports that today she began having heart palpitations that would last for a few seconds before resolving. She complains of numbness in the back of her head and increased leg swelling today. The patient denies any shortness of breath but notes that her oxygen saturation decreases with her palpitations. She denies any fever and cough. She notes a history of hypertension, appendicitis, hysterectomy, and hernia repair. The patient states that she is on Aspirin and has not history of blood clots or atrial fibrillation. Source of History: patient Onset: 3 hours ago Position: other (heart) Quality: other (palpitations) Timing: intermittent Associated Symptoms: + numbness, No fevers, No cough, No SOB Note: Pt complains of increased leg swelling. Review of Systems See HPI for pertinent positives & negatives. A total of 10 systems reviewed and were otherwise negative. Past Medical & Surgical Medical Problems: (1) Cholelithiasis (2) Degenerative disc disease, lumbar (3) History of MRSA infection (4) Hypertension (5) Left Knee DJD (6) Nonalcoholic fatty liver disease (7) Obesity (8) Osteoarthritis of knees, bilateral (9) Palpitations Surgical Problems: (1) Status post appendectomy (2) Status post gastric bypass for obesity (3) Status post hysterectomy (4) Status post right knee replacement Family History COPD (chronic obstructive pulmonary disease) MOTHER Carcinoma of kidney MOTHER BROTHER Coronary artery disease MOTHER GI bleeding FATHER Gallbladder disease MOTHER SISTER Hypertension BROTHER Social History Smoking Status: Never Smoker Alcohol Use: none Drug Use: none Current/Historical Medications Scheduled Acetaminophen (Sb Non-Aspirin Extra Stre), 1,000 MG PO Q8 Aspirin (Aspirin), 325 MG PO BID Calcium/Vitamin D (Os-Brady 500 Plus D), 2 TAB PO QAM Docusate Sodium (Colace), 1 CAP PO BID Ferrous Gluconate (Ferrous Gluconate), 324 MG PO BIDM Lisinopril (Prinivil), 20 MG PO QAM Morphine Cont Rel (Ms Contin), 15 MG PO Q12 Multivitamin (Multivitamin), 1 TAB PO QAM Polyethylene Glycol 3350 (Miralax), 17 GM PO DAILY [Vitamin B-12], 1,000 MCG IM Q3 MONTHS Scheduled PRN Clindamycin Hcl (Cleocin), 600 MG PO UD PRN for RN Tramadol HCl (Tramadol HCl), 50-100 MG PO Q6 PRN for Pain Allergies Coded Allergies: Erythromycin (Verified Allergy, Severe, ERYTHEMA, ANALPHYLAXIS, 03/14/17) Cephalosporins (Verified Allergy, Intermediate, HIVES, 03/14/17) Penicillins (Verified Allergy, Intermediate, HIVES, 03/14/17) Sulfa Drugs (Verified Allergy, Mild, RASH, 03/14/17) Cefaclor (Verified Allergy, Unknown, UNKNOWN, 03/14/17) Nitrates, Organic (Verified Allergy, Unknown, UNKNOWN, 03/14/17) Nitrofurantoin (Verified Adverse Reaction, Severe, INEFFECTIVE, 03/14/17) Physical Exam Vital Signs Date Time Temp Pulse Resp B/P (MAP) Pulse Ox O2 Delivery O2 Flow Rate FiO2 03/14/17 19:51 82 16 123/67 99 03/14/17 19:29 82 16 123/67 99 Nasal Cannula 2.0 03/14/17 19:27 79 03/14/17 15:36 77 20 111/68 95 Nasal Cannula 2.0 03/14/17 13:50 68 20 105/95 96 Room Air 03/14/17 12:27 88 Room Air 03/14/17 12:27 Nasal Cannula 2.0 03/14/17 12:07 78 03/14/17 11:58 93 Room Air 03/14/17 11:57 93 Room Air 03/14/17 11:36 36.7 79 20 154/90 93 Room Air Physical Exam GENERAL: Patient is awake, alert, and in no acute distress. Patient is resting comfortably and showing no signs of anxiety EYES: The conjunctivae are clear. The pupils are round and reactive. EARS, NOSE, MOUTH AND THROAT: The nose is without any evidence of any deformity. Mucous membranes are moist tongue is midline NECK: The neck is nontender and supple. RESPIRATORY: Normal respiratory effort is noted there is no evidence of wheezing rhonchi or rales CARDIOVASCULAR: Regular rate and rhythm noted there no murmurs rubs or gallops normal S1 normal S2 GASTROINTESTINAL: The abdomen is mildly distended but soft. Bowel sounds are present in all quadrants. Abdomen is nontender. No guarding or rigidity noted. MUSCULOSKELETAL/EXTREMITIES: There is no evidence of gross deformity full range of motion is noted in the hips and shoulders. Post operative site in the left knee noted, skin amirah in place, no erythema, drainage, or dehiscence noted. Pedal edema bilaterally in left greater than right SKIN: There is no obvious evidence of any rash. There are no petechiae, pallor or cyanosis noted. NEUROLOGIC: Patient is awake alert and oriented x3 Medical Decision & Procedures ER Provider Diagnostic Interpretation: Radiology results as stated below per my review and radiologist interpretation: SINGLE VIEW CHEST FINDINGS: An AP, portable, upright chest radiograph is compared to study dated 02/09/2017. The examination is degraded by portable technique and patient rotation. The heart is top normal for projection. There is mild atherosclerotic calcification of the thoracic aorta. The pulmonary vascular structures noncongested. The lungs and pleural spaces are clear. No pneumothorax is seen. The skeletal structures are osteopenic. The bony thorax is grossly intact. IMPRESSION: No acute cardiopulmonary abnormality. Electronically signed by: Noel Pedorza M.D. 03/14/2017 12:19 PM Dictated Date/Time: 03/14/2017 12:18 PM ULTRASOUND LEFT LOWER EXTREMITY VENOUS FINDINGS: There is no sonographic evidence of deep venous thrombosis identified in the left lower extremity. The common femoral, superficial femoral, and popliteal veins are patent and normally compressible. The greater saphenous vein and the profunda femoris vein at the junction with the common femoral vein are clear. The visualized calf veins are patent. IMPRESSION: There is no sonographic evidence of deep venous thrombosis identified in the left lower extremity. Electronically signed by: Noel Pedroza M.D. 03/14/2017 2:19 PM Dictated Date/Time: 03/14/2017 2:[address] ANGIOGRAM OF THE CHEST FINDINGS: Thyroid: Imaged portions of the thyroid gland are normal in size and attenuation. Thoracic aorta: There is atherosclerotic calcification of the thoracic aorta, which is normal in caliber and demonstrates standard 3-vessel arch anatomy. No dissection is seen. Pulmonary vasculature: The main pulmonary arteries are dilated suggesting pulmonary artery hypertension. There is a small filling defect suggested within a the segmental branch of the right middle lobe on axial image #138. No additional filling defects identified in main, lobar, or segmental pulmonary branches to suggest pulmonary embolus. Heart: The heart is mildly enlarged and without pericardial effusion. There are coronary artery calcifications. Lungs and pleural spaces: Evaluation of the lung parenchyma is modestly degraded by motion artifact. Dependent atelectasis is seen at the left lung base. There is no airspace consolidation identified typical for pneumonia. No pleural effusion is seen. The trachea and central airways are clear. Mediastinum: There is no mediastinal lymphadenopathy. Lola: Clear. Axillae: There is no axillary lymphadenopathy. Upper abdomen: There is a small hiatal hernia. Postoperative changes partially visualized stomach. Skeletal structures: The skeletal structures are osteopenic. Degenerative change is noted throughout the thoracic spine. No lytic or blastic bony lesions are seen. IMPRESSION: 1. There is a tiny apparent filling defect within a medial segmental branch of the right middle lobe pulmonary artery. This likely represents artifact. A small pulmonary embolus is considered less likely. No additional filling defects are identified throughout the pulmonary arteries to suggest pulmonary embolus. 2. No airspace consolidation or pleural effusion is identified. 3. Cardiomegaly with evidence of pulmonary artery hypertension. Electronically signed by: Noel Pedroza M.D. 03/14/2017 4:23 PM Dictated Date/Time: 03/14/2017 4:11 PM Laboratory Results 03/14/17 12:56 Red Blood Count 3.42, Mean Corpuscular Volume 92.4, Mean Corpuscular Hemoglobin 29.5, Mean Corpuscular Hemoglobin Concent 32.0, Mean Platelet Volume 9.6, Neutrophils (%) (Auto) 67.5, Lymphocytes (%) (Auto) 17.4, Monocytes (%) (Auto) 6.9, Eosinophils (%) (Auto) 7.8, Basophils (%) (Auto) 0.0, Neutrophils # (Auto) 3.64, Lymphocytes # (Auto) 0.94, Monocytes # (Auto) 0.37, Eosinophils # (Auto) 0.42, Basophils # (Auto) 0.00 03/14/17 12:56 Test 03/14/17 12:56 03/14/17 13:49 White Blood Count 5.39 K/uL (4.8-10.8) Red Blood Count 3.42 M/uL (4.2-5.4) Hemoglobin 10.1 g/dL (12.0-16.0) Hematocrit 31.6 % (37-47) Mean Corpuscular Volume 92.4 fL (80-100) Mean Corpuscular Hemoglobin 29.5 pg (25-34) Mean Corpuscular Hemoglobin Concent 32.0 g/dl (32-36) Platelet Count 162 K/uL (130-400) Mean Platelet Volume 9.6 fL (7.4-10.4) Neutrophils (%) (Auto) 67.5 % Lymphocytes (%) (Auto) 17.4 % Monocytes (%) (Auto) 6.9 % Eosinophils (%) (Auto) 7.8 % Basophils (%) (Auto) 0.0 % Neutrophils # (Auto) 3.64 K/uL (1.4-6.5) Lymphocytes # (Auto) 0.94 K/uL (1.2-3.4) Monocytes # (Auto) 0.37 K/uL (0.11-0.59) Eosinophils # (Auto) 0.42 K/uL (0-0.5) Basophils # (Auto) 0.00 K/uL (0-0.2) RDW Standard Deviation 43.7 fL (36.4-46.3) RDW Coefficient of Variation 12.8 % (11.5-14.5) Immature Granulocyte % (Auto) 0.4 % Immature Granulocyte # (Auto) 0.02 K/uL (0.00-0.02) Prothrombin Time 11.1 SECONDS (9.0-12.0) Prothromb Time International Ratio 1.0 (0.9-1.1) Activated Partial Thromboplast Time 27.3 SECONDS (21.0-31.0) Partial Thromboplastin Ratio 1.1 D-Dimer 5010 ug/L FEU (0-500) Anion Gap 5.0 mmol/L (3-11) Estimated GFR () 68.5 Estimated GFR (Non- 59.1 BUN/Creatinine Ratio 13.4 (10-20) Calcium Level 8.5 mg/dl (8.5-10.1) Total Bilirubin 0.8 mg/dl (0.2-1) Aspartate Amino Transf (AST/SGOT) 23 U/L (15-37) Alanine Aminotransferase (ALT/SGPT) 22 U/L (12-78) Alkaline Phosphatase 79 U/L (45-117) Total Creatine Kinase 100 U/L (26-192) Creatine Kinase MB 0.5 ng/ml (0.5-3.6) Creatine Kinase MB Ratio 0.5 (0-3.0) Troponin I < 0.015 ng/ml (0-0.045) Pro-B-Type Natriuretic Peptide 401 pg/ml (0-900) Total Protein 6.0 gm/dl (6.4-8.2) Albumin 2.6 gm/dl (3.4-5.0) Globulin 3.4 gm/dl (2.5-4.0) Albumin/Globulin Ratio 0.8 (0.9-2) Urine Color YELLOW Urine Appearance CLEAR (CLEAR) Urine pH 5.5 (4.5-7.5) Urine Specific [place] 1.009 (1.000-1.030) Urine Protein NEG (NEG) Urine Glucose (UA) NEG (NEG) Urine Ketones NEG (NEG) Urine Occult Blood NEG (NEG) Urine Nitrite POS (NEG) Urine Bilirubin NEG (NEG) Urine Urobilinogen NEG (NEG) Urine Leukocyte Esterase LARGE (NEG) Urine WBC (Auto) >30 /hpf (0-5) Urine RBC (Auto) 0-4 /hpf (0-4) Urine Hyaline Casts (Auto) 0 /lpf (0-5) Urine Epithelial Cells (Auto) 0-5 /lpf (0-5) Urine Bacteria (Auto) 4+ (NEG) Laboratory results per my review. Medications Administered Medications (Trade) Dose Ordered Sig/[place] Route Start Time Stop Time Status Last Admin Dose Admin Sodium Chloride 1,000 ml @ 999 mls/hr Q1H1M STAT IV 03/14/17 12:01 03/14/17 13:01 DC 03/14/17 12:01 999 MLS/HR Levofloxacin (Levaquin / D5W) 750 mg NOW STAT IV 03/14/17 17:18 03/14/17 17:19 DC 03/14/17 19:23 750 MG Heparin Sodium/ Dextrose (Heparin 25,000 Unit/500ml D5W) 25,000 unit STK-MED ONCE .ROUTE 03/14/17 19:14 03/14/17 19:15 DC 03/14/17 19:25 25,000 UNIT Heparin Sodium (Porcine) (Heparin Sq 5000 Unit/0.5ml) 5,000 unit STK-MED ONCE .ROUTE 03/14/17 19:14 03/14/17 19:15 DC 03/14/17 19:26 5,000 UNIT ECG Indication: palpitations Rate (beats per minute): 72 Rhythm: normal sinus Findings: no ectopy, other (no acute ST segment abnormalities) Comparison ECG Date: 05/19/16 Change: no significant change ED Course 1158: The patient was evaluated in room C3. A complete history and physical examination were performed. 1201: NSS 1,000 ml @ 999 mls/hr IV. 1424: I reevaluated and updated the patient. 1709: I discussed the patient's case with Dr. Duque of [facility]. The patient will be evaluated for further management. 1718: Heparin Sodium/Dextrose 1ea N/A, Levofloxacin 750mg IV. 1723: Upon reevaluation, the patient is doing well. I discussed results and treatment plan with the patient. She verbalizes agreement and understanding. I spoke with Dr. Duque of the [facility]. The patient will be evaluated for further management and care. Medical Decision Differential diagnosis: Etiologies such as premature contractions, electrolyte abnormality, cardiac dysrhythmia, thyroid dysfunction, pulmonary embolism, infection, gastrointestinal, as well as others were entertained. Nursing notes reviewed. The patient is a 67-year-old female who presented to the emergency department for an evaluation of chest pain. The patient describes episodes of palpitations which are related to difficulty breathing. She also complains of dyspnea on exertion. The patient was found have episodes of hypoxia while she is in the emergency department. She is status post surgery to her left leg. I was very concerned for the possibility of venous thromboembolic disease. Ultrasound of lower extremity did not show any signs of acute DVT. The patient had a CT the chest which did reveal a possible pulmonary embolism. Given the patient's clinical presentation I do feel this is a real finding. She was started on what that is. She was also treated with antibiotics for presumed urinary tract infection. I discussed the patient's laboratory and radiographic studies with her. I also discussed his case with the on-call [facility] hospitalist. They' ve agreed to evaluate the patient in the emergency department for further management and disposition. Medication Reconcilliation Current Medication List: was personally reviewed by me Blood Pressure Screening Patient's blood pressure: Elevated blood pressure Blood pressure disposition: Referred to PCP Consults Time Called: 170 Consulting Physician: Dr. Duque - [facility] Returned Call: 1709 I discussed the patient's case with Dr. Duque of [facility]. The patient will be evaluated for further management. Impression Primary Impression: Pulmonary embolism Additional Impressions: Chest pain SOB (shortness of breath) Hypoxia UTI (urinary tract infection) Scribe Attestation The scribe's documentation has been prepared under my direction and personally reviewed by me in its entirety. I confirm that the note above accurately reflects all work, treatment, procedures, and medical decision making performed by me. Departure Information Dispostion Being Evaluated By Hospitalist Referrals Leyda Sinclair M.D. (PCP) Patient Instructions My [facility] Problem Qualifiers Primary Impression: Pulmonary embolism Pulmonary embolism type: other Chronicity: acute Acute cor pulmonale presence: without acute cor pulmonale Qualified Codes: I26.99 - Other pulmonary embolism without acute cor pulmonale Additional Impressions: Chest pain Chest pain type: unspecified Qualified Codes: R07.9 - Chest pain, unspecified UTI (urinary tract infection) Urinary tract infection type: site unspecified Hematuria presence: without hematuria Qualified Codes: N39.0 - Urinary tract infection, site not specified
[2017-03-14] MEDS ORDERED: POLY335019 PO (12:34)
[2017-03-14] MEDS ORDERED: DOCU-94 PO (12:34)
[2017-03-14 13:07] LABS: COMPLETE YES; EOS % 7.8 %; HEMATOCRIT 31.6 % (37-47); IG% 0.4 %; LYMPH % 17.4 %; LYMPH ABS # 0.94 K/uL (1.2-3.4); MEAN CELL VOLUME 92.4 fL (80-100); MEAN CORPUSCULAR HEMOGLOBIN 29.5 pg (25-34); MEAN PLATELET VOLUME 9.6 fL (7.4-10.4); MONO % 6.9 %; NEUT % 67.5 %; PLATELET COUNT 162 K/uL (130-400); RED BLOOD COUNT 3.42 M/uL (4.2-5.4); WHITE BLOOD COUNT 5.39 K/uL (4.8-10.8)
[2017-03-14 13:17] LABS: PARTIAL THROMBOPLASTIN RATIO 1.1; PROTHROMBIN TIME (PATIENT) 11.1 SECONDS (9.0-12.0)
[2017-03-14 13:24] LABS: ALT/SGPT 22 U/L (12-78); BLOOD UREA NITROGEN 13 mg/dl (7-18); BUN/CREATININE RATIO 13.4 (10-20); CALCIUM 8.5 mg/dl (8.5-10.1); CARBON DIOXIDE 31 mmol/L (21-32); CHLORIDE 102 mmol/L (98-107); GLUCOSE 116 mg/dl (70-99); POTASSIUM 4.1 mmol/L (3.5-5.1); SODIUM 138 mmol/L (136-145)
[2017-03-14 13:30] LABS: ALB/GLOB RATIO 0.8 (0.9-2); ALKALINE PHOSPHATASE 79 U/L (45-117); AST/SGOT 23 U/L (15-37); CKMB/CK RATIO 0.5 (0-3.0)
[2017-03-14 14:04] LABS: URINE APPEARANCE CLEAR (CLEAR); URINE BILIRUBIN NEG (NEG); URINE COLOR YELLOW; URINE EPITHELIAL CELL AUTO 0-5 /lpf (0-5); URINE NITRITE POS (NEG); URINE PH 5.5 (4.5-7.5); URINE SPECIFIC GRAVITY 1.009 (1.000-1.030); UROBILINOGEN NEG (NEG)
[2017-03-14 14:07] LABS: MANUAL MICROSCOPIC REQUIRED? NO; REVIEW REQ? NO
--- NOTE | 2017-03-14 14:20 | DIAGNOSTIC IMAGING REPORT ---
ULTRASOUND LEFT LOWER EXTREMITY VENOUS CLINICAL HISTORY: Left leg pain. COMPARISON STUDY: Left lower extremity venous ultrasound dated 04/12/2013. TECHNIQUE: Real-time, grayscale, and color Doppler sonography of the deep veins of the left lower extremity was performed from the inguinal crease to the calf. Compression and augmentation were utilized. FINDINGS: There is no sonographic evidence of deep venous thrombosis identified in the left lower extremity. The common femoral, superficial femoral, and popliteal veins are patent and normally compressible. The greater saphenous vein and the profunda femoris vein at the junction with the common femoral vein are clear. The visualized calf veins are patent. IMPRESSION: There is no sonographic evidence of deep venous thrombosis identified in the left lower extremity. Electronically signed by: Noel Pedroza M.D. 03/14/2017 2:19 PM Dictated Date/Time: 03/14/2017 2:18 PM
[2017-03-14] MEDS ORDERED: OPTIRAY 320 IV PRN (14:30)
--- NOTE | 2017-03-14 16:24 | DIAGNOSTIC IMAGING REPORT ---
CT ANGIOGRAM OF THE CHEST CLINICAL HISTORY: Dyspnea. Atypical chest pain. COMPARISON STUDY: Chest x-ray dated 03/14/2017. TECHNIQUE: Following the IV administration of 92 cc of Optiray 320, CT angiogram of the chest was performed from the upper abdomen to the thoracic inlet utilizing the pulmonary embolus protocol. Images are reviewed in the axial, sagittal, and coronal planes. 3-D MIPS images are created and assessed. IV contrast was administered without complication. A dose lowering technique was utilized adhering to the principles of ALARA. The examination is degraded by large body habitus, and by streak artifact from the body wall abutting the CT gantry. CT DOSE: 667.53 mGy.cm FINDINGS: Thyroid: Imaged portions of the thyroid gland are normal in size and attenuation. Thoracic aorta: There is atherosclerotic calcification of the thoracic aorta, which is normal in caliber and demonstrates standard 3-vessel arch anatomy. No dissection is seen. Pulmonary vasculature: The main pulmonary arteries are dilated suggesting pulmonary artery hypertension. There is a small filling defect suggested within a the segmental branch of the right middle lobe on axial image #138. No additional filling defects identified in main, lobar, or segmental pulmonary branches to suggest pulmonary embolus. Heart: The heart is mildly enlarged and without pericardial effusion. There are coronary artery calcifications. Lungs and pleural spaces: Evaluation of the lung parenchyma is modestly degraded by motion artifact. Dependent atelectasis is seen at the left lung base. There is no airspace consolidation identified typical for pneumonia. No pleural effusion is seen. The trachea and central airways are clear. Mediastinum: There is no mediastinal lymphadenopathy. Lola: Clear. Axillae: There is no axillary lymphadenopathy. Upper abdomen: There is a small hiatal hernia. Postoperative changes partially visualized stomach. Skeletal structures: The skeletal structures are osteopenic. Degenerative change is noted throughout the thoracic spine. No lytic or blastic bony lesions are seen. IMPRESSION: 1. There is a tiny apparent filling defect within a medial segmental branch of the right middle lobe pulmonary artery. This likely represents artifact. A small pulmonary embolus is considered less likely. No additional filling defects are identified throughout the pulmonary arteries to suggest pulmonary embolus. 2. No airspace consolidation or pleural effusion is identified. 3. Cardiomegaly with evidence of pulmonary artery hypertension. Electronically signed by: Noel Pedroza M.D. 03/14/2017 4:23 PM Dictated Date/Time: 03/14/2017 4:11 PM
[2017-03-14] MEDS ORDERED: LEVAQUIN 750MG / 150ML D5W IV STA (17:18)
[2017-03-14] MEDS ORDERED: HEPARIN 25000 UNIT/500 ML D5W ONE (19:14)
[2017-03-14] MEDS ORDERED: HEPARIN SOD 5000 UNIT/0.5 ML CARP ONE (19:14)
[2017-03-14] MEDS ORDERED: TRAMADOL HCL 50 MG TAB PO PRN (19:15)
--- NOTE | 2017-03-14 19:59 | History and Physical ---
History & Physical Date & Time of Service: Mar 14, 2017 at 19:39 Chief Complaint: Chest Discomfort/Numbness Primary Care Physician: Leyda Sinclair M.D. History of Present Illness Source: patient, family 67 y/o F with PMH of HTN, HLD, hypothyroidism s/p left TKA on 03/10 presented to the ER with c/o palpitations that started this morning . also c/o a funny feeling in the chest with numbness across the anterior chest but denied any CP, SOB, lightheadedness or dizziness. she had checked her pulse ox and noticed that her sats were dropping. also noted to have increased lower extremity swelling in bilateral feet but especially in the LLE. denied any fevers/chills, cough. has been using aspirin 325 mg BID postop for DVT prophylaxis. denies any h/o DVT but her sister had PE sec to DVT in LE after a injury and air travel. has some urinary hesitancy and retention but denied dysuria Past Medical/Surgical History Medical Problems: (1) Cholelithiasis Status: Chronic (2) Degenerative disc disease, lumbar Status: Chronic (3) History of MRSA infection Permanent Comment: wound infection 2009; nasal MRSA screen negative 10/06/13 Status: Chronic (4) Hypertension Status: Chronic (5) Nonalcoholic fatty liver disease Status: Chronic (6) Obesity Status: Chronic (7) Osteoarthritis of knees, bilateral Status: Chronic Surgical Problems: (1) Status post appendectomy Status: Chronic (2) Status post gastric bypass for obesity Status: Chronic (3) Status post hysterectomy Status: Chronic (4) Status post right knee replacement Status: Chronic Family History COPD (chronic obstructive pulmonary disease) MOTHER Carcinoma of kidney MOTHER BROTHER Coronary artery disease MOTHER GI bleeding FATHER Gallbladder disease MOTHER SISTER Hypertension BROTHER Social History Smoking Status: Never Smoker Drug Use: none Housing status: lives with family Immunizations History of Influenza Vaccine: Yes History of Tetanus Vaccine?: No History of Pneumococcal: No History of Hepatitis B Vaccine: No Multi-Drug Resistant Organisms History of MDRO: Yes Allergies Coded Allergies: Erythromycin (Verified Allergy, Severe, ERYTHEMA, ANALPHYLAXIS, 03/14/17) Cephalosporins (Verified Allergy, Intermediate, HIVES, 03/14/17) Penicillins (Verified Allergy, Intermediate, HIVES, 03/14/17) Sulfa Drugs (Verified Allergy, Mild, RASH, 03/14/17) Cefaclor (Verified Allergy, Unknown, UNKNOWN, 03/14/17) Nitrates, Organic (Verified Allergy, Unknown, UNKNOWN, 03/14/17) Nitrofurantoin (Verified Adverse Reaction, Severe, INEFFECTIVE, 03/14/17) Home Medications Scheduled Acetaminophen (Sb Non-Aspirin Extra Stre), 1,000 MG PO Q8 Aspirin (Aspirin), 325 MG PO BID Calcium/Vitamin D (Os-Brady 500 Plus D), 2 TAB PO QAM Docusate Sodium (Colace), 1 CAP PO BID Ferrous Gluconate (Ferrous Gluconate), 324 MG PO BIDM Lisinopril (Prinivil), 20 MG PO QAM Morphine Cont Rel (Ms Contin), 15 MG PO Q12 Multivitamin (Multivitamin), 1 TAB PO QAM Polyethylene Glycol 3350 (Miralax), 17 GM PO DAILY [Vitamin B-12], 1,000 MCG IM Q3 MONTHS Scheduled PRN Clindamycin Hcl (Cleocin), 600 MG PO UD PRN for RN Tramadol HCl (Tramadol HCl), 50-100 MG PO Q6 PRN for Pain Review of Systems Constitutional: No fever, No chills Eyes: No worsening of vision ENT: No hearing loss Respiratory: No cough, No sputum, No shortness of breath, No dyspnea on exertion Cardiovascular: + palpitations, + problem reported (numbness across chest), No chest pain Abdomen: No pain, No nausea, No vomiting Musculoskeletal: No joint pain Genitourinary - Female: + urinary retention, No dysuria Neurologic: No memory loss, No paralysis Psychiatric: No depression symptoms Endocrine: No fatigue Integumentary: No rash Physical Exam Vital Signs Date Time Temp Pulse Resp B/P (MAP) Pulse Ox O2 Delivery O2 Flow Rate FiO2 03/14/17 19:29 82 16 123/67 99 Nasal Cannula 2.0 03/14/17 19:27 79 03/14/17 15:36 77 20 111/68 95 Nasal Cannula 2.0 03/14/17 13:50 68 20 105/95 96 Room Air 03/14/17 12:27 88 Room Air 03/14/17 12:27 Nasal Cannula 2.0 03/14/17 12:07 78 03/14/17 11:58 93 Room Air 03/14/17 11:57 93 Room Air 03/14/17 11:36 36.7 79 20 154/90 93 Room Air General Appearance: WD/WN, no apparent distress Head: normocephalic Eyes: normal inspection ENT: hearing grossly normal Neck: supple Respiratory/Chest: chest non-tender, lungs clear, + decreased breath sounds Cardiovascular: regular rate, rhythm Abdomen/GI: normal bowel sounds, non tender, soft Extremities/Musculoskelatal: no calf tenderness (intact clean looking incision site LLE with amirah), + pedal edema (bilateral), + pertinent finding Neurologic/Psych: alert, normal mood/affect, oriented x 3 Skin: normal color Diagnostics Laboratory Results Results Past 24 Hours Test 03/14/17 12:56 03/14/17 13:49 Range/Units White Blood Count 5.39 4.8-10.8 K/uL Red Blood Count 3.42 4.2-5.4 M/uL Hemoglobin 10.1 12.0-16.0 g/dL Hematocrit 31.6 37-47 % Mean Corpuscular Volume 92.4 80-100 fL Mean Corpuscular Hemoglobin 29.5 25-34 pg Mean Corpuscular Hemoglobin Concent 32.0 32-36 g/dl Platelet Count 162 130-400 K/uL Mean Platelet Volume 9.6 7.4-10.4 fL Neutrophils (%) (Auto) 67.5 % Lymphocytes (%) (Auto) 17.4 % Monocytes (%) (Auto) 6.9 % Eosinophils (%) (Auto) 7.8 % Basophils (%) (Auto) 0.0 % Neutrophils # (Auto) 3.64 1.4-6.5 K/uL Lymphocytes # (Auto) 0.94 1.2-3.4 K/uL Monocytes # (Auto) 0.37 0.11-0.59 K/uL Eosinophils # (Auto) 0.42 0-0.5 K/uL Basophils # (Auto) 0.00 0-0.2 K/uL RDW Standard Deviation 43.7 36.4-46.3 fL RDW Coefficient of Variation 12.8 11.5-14.5 % Immature Granulocyte % (Auto) 0.4 % Immature Granulocyte # (Auto) 0.02 0.00-0.02 K/uL Prothrombin Time 11.1 9.0-12.0 SECONDS Prothromb Time International Ratio 1.0 0.9-1.1 Activated Partial Thromboplast Time 27.3 21.0-31.0 SECONDS Partial Thromboplastin Ratio 1.1 D-Dimer 5010 0-500 ug/L FEU Sodium Level 138 136-145 mmol/L Potassium Level 4.1 3.5-5.1 mmol/L Chloride Level 102 98-107 mmol/L Carbon Dioxide Level 31 21-32 mmol/L Anion Gap 5.0 3-11 mmol/L Blood Urea Nitrogen 13 7-18 mg/dl Creatinine 1.00 0.60-1.20 mg/dl Estimated GFR () 68.5 Estimated GFR (Non- 59.1 BUN/Creatinine Ratio 13.4 10-20 Random Glucose 116 70-99 mg/dl Calcium Level 8.5 8.5-10.1 mg/dl Total Bilirubin 0.8 0.2-1 mg/dl Aspartate Amino Transf (AST/SGOT) 23 15-37 U/L Alanine Aminotransferase (ALT/SGPT) 22 12-78 U/L Alkaline Phosphatase 79 45-117 U/L Total Creatine Kinase 100 26-192 U/L Creatine Kinase MB 0.5 0.5-3.6 ng/ml Creatine Kinase MB Ratio 0.5 0-3.0 Troponin I < 0.015 0-0.045 ng/ml Pro-B-Type Natriuretic Peptide 401 0-900 pg/ml Total Protein 6.0 6.4-8.2 gm/dl Albumin 2.6 3.4-5.0 gm/dl Globulin 3.4 2.5-4.0 gm/dl Albumin/Globulin Ratio 0.8 0.9-2 Urine Color YELLOW Urine Appearance CLEAR CLEAR Urine pH 5.5 4.5-7.5 Urine Specific [place] 1.009 1.000-1.030 Urine Protein NEG NEG Urine Glucose (UA) NEG NEG Urine Ketones NEG NEG Urine Occult Blood NEG NEG Urine Nitrite POS NEG Urine Bilirubin NEG NEG Urine Urobilinogen NEG NEG Urine Leukocyte Esterase LARGE NEG Urine WBC (Auto) >30 0-5 /hpf Urine RBC (Auto) 0-4 0-4 /hpf Urine Hyaline Casts (Auto) 0 0-5 /lpf Urine Epithelial Cells (Auto) 0-5 0-5 /lpf Urine Bacteria (Auto) 4+ NEG Microbiology Results 03/14/17 Urine Culture, Received Pending Diagnostic Radiology ULTRASOUND LEFT LOWER EXTREMITY VENOUS CLINICAL HISTORY: Left leg pain. COMPARISON STUDY: Left lower extremity venous ultrasound dated 04/12/2013. TECHNIQUE: Real-time, grayscale, and color Doppler sonography of the deep veins of the left lower extremity was performed from the inguinal crease to the calf. Compression and augmentation were utilized. FINDINGS: There is no sonographic evidence of deep venous thrombosis identified in the left lower extremity. The common femoral, superficial femoral, and popliteal veins are patent and normally compressible. The greater saphenous vein and the profunda femoris vein at the junction with the common femoral vein are clear. The visualized calf veins are patent. IMPRESSION: There is no sonographic evidence of deep venous thrombosis identified in the left lower extremity. Electronically signed by: Noel Pedroza M.D. 03/14/2017 2:19 PM Dictated Date/Time: 03/14/2017 2:18 PM SINGLE VIEW CHEST CLINICAL HISTORY: Dyspnea. FINDINGS: An AP, portable, upright chest radiograph is compared to study dated 02/09/2017. The examination is degraded by portable technique and patient rotation. The heart is top normal for projection. There is mild atherosclerotic calcification of the thoracic aorta. The pulmonary vascular structures noncongested. The lungs and pleural spaces are clear. No pneumothorax is seen. The skeletal structures are osteopenic. The bony thorax is grossly intact. IMPRESSION: No acute cardiopulmonary abnormality. Electronically signed by: Noel Pedroza M.D. 03/14/2017 12:19 PM Dictated Date/Time: 03/14/2017 12:[address] ANGIOGRAM OF THE CHEST CLINICAL HISTORY: Dyspnea. Atypical chest pain. COMPARISON STUDY: Chest x-ray dated 03/14/2017. TECHNIQUE: Following the IV administration of 92 cc of Optiray 320, CT angiogram of the chest was performed from the upper abdomen to the thoracic inlet utilizing the pulmonary embolus protocol. Images are reviewed in the axial, sagittal, and coronal planes. 3-D MIPS images are created and assessed. IV contrast was administered without complication. A dose lowering technique was utilized adhering to the principles of ALARA. The examination is degraded by large body habitus, and by streak artifact from the body wall abutting the CT gantry. CT DOSE: 667.53 mGy.cm FINDINGS: Thyroid: Imaged portions of the thyroid gland are normal in size and attenuation. Thoracic aorta: There is atherosclerotic calcification of the thoracic aorta, which is normal in caliber and demonstrates standard 3-vessel arch anatomy. No dissection is seen. Pulmonary vasculature: The main pulmonary arteries are dilated suggesting pulmonary artery hypertension. There is a small filling defect suggested within a the segmental branch of the right middle lobe on axial image #138. No additional filling defects identified in main, lobar, or segmental pulmonary branches to suggest pulmonary embolus. Heart: The heart is mildly enlarged and without pericardial effusion. There are coronary artery calcifications. Lungs and pleural spaces: Evaluation of the lung parenchyma is modestly degraded by motion artifact. Dependent atelectasis is seen at the left lung base. There is no airspace consolidation identified typical for pneumonia. No pleural effusion is seen. The trachea and central airways are clear. Mediastinum: There is no mediastinal lymphadenopathy. Lola: Clear. Axillae: There is no axillary lymphadenopathy. Upper abdomen: There is a small hiatal hernia. Postoperative changes partially visualized stomach. Skeletal structures: The skeletal structures are osteopenic. Degenerative change is noted throughout the thoracic spine. No lytic or blastic bony lesions are seen. IMPRESSION: 1. There is a tiny apparent filling defect within a medial segmental branch of the right middle lobe pulmonary artery. This likely represents artifact. A small pulmonary embolus is considered less likely. No additional filling defects are identified throughout the pulmonary arteries to suggest pulmonary embolus. 2. No airspace consolidation or pleural effusion is identified. 3. Cardiomegaly with evidence of pulmonary artery hypertension. Electronically signed by: Noel Pedroza M.D. 03/14/2017 4:23 PM Dictated Date/Time: 03/14/2017 4:11 PM EKG Normal sinus rhythm Incomplete right bundle branch block Borderline ECG When compared with ECG of 19-MAY-2016 20:23, No significant change was found Impression Assessment and Plan 67 y/o F with PMH of HLD, hypothyroidism s/p left TKA on 03/10 presented to the ER with c/o palpitations that started this morning . was noted to be sropping her oxygen saturations while at home and in the ER. she is asymptomatic except for intermittent palpitations. concern for PE considering recent surgery and relative immobilization Hypoxia likely sec to provoked PE s/p left TKA: - D-dimer elevated, CXR unremarkable - Chest CT revealed tiny apparent filling defect within a medial segmental branch of the right middle lobe pulmonary artery. - Us Doppler left lung negative, US Doppler right leg ordered - troponin negative, trend q8h - echo ordered - IV low dose heparin with bolus ordered - O2 per protocol UTI - UA positive for nitrite, large leuc esterase, >30 WBC, 4+bact - UC pending - received a dose of levaquin in ER - Levaquin daily. is allergic to several other drugs HTN; - continue lisinopril lower extremity swelling s/p TKA likely post surgical PT DVT prophylaxis: IV heparin Full code Dispo: admitted to tele Resident Physician Supervision Note: I was present with Dr. Martinez during the history and exam. I discussed the case with the resident and agree with the findings and plan as documented in the note. Any exceptions or clarifications are listed here: Patient with episodic chest sensation and intermittent oxygen desaturations, although not necessarily at the same time. She describes a sense of palpitations , although no ectopy seen on ED telemetry. CT scan suggest small filling defect versus artifact, and LLE US is negative for DVT. Given the combination of symptoms - recommend anticoagulation. Would also check US of RLE. If this is negative, could consider repeat CT tomorrow to clarify presence of PE. Documented By: David Escalera Level of Care Telemetry Resuscitation Status FULL RESUSCITATION VTE Prophylaxis VTE Risk Assessment Done? Y/N: Yes Risk Level: Moderate Given or contraindicated: Other Anticoagulation (heparin) Resident Tracking Resident Involvement: Resident Care Provided Care Provided: Adult Hospital Medicine
[2017-03-14 21:04] VITALS: BP 127/86; PULSE 100; TEMP 36.9; O2SAT 96; Ht 160 cm; Wt 149.0 kg
[2017-03-14] MEDS: HEPARIN 25,000 UNIT/500ML D5W 500 ML IV PRN (21:58)
[2017-03-14] MEDS ORDERED: LEVOFLOXACIN / D5W 500 MG in PREMIXED IN D5W 100 ML IV SCH (22:00)
[2017-03-14] MEDS: DOCUSATE SODIUM 100 MG CAP PO SCH (22:01)
[2017-03-15] VITALS: BP 118/69; PULSE 74; TEMP 36.8; O2SAT 96
[2017-03-15 02:28] LABS: PARTIAL THROMBOPLASTIN RATIO 1.4
[2017-03-15] MEDS ORDERED: HEPARIN IV BOLUS 4,500 UNIT in SYRINGE 0 ML IV STA (02:42)
[2017-03-15 04:01] VITALS: BP 121/72; PULSE 68; TEMP 36.7; O2SAT 96
[2017-03-15 05:12] LABS: BASO % 0.2 %; BASO ABS # 0.01 K/uL (0-0.2); COMPLETE YES; EOS % 9.3 %; HEMATOCRIT 28.2 % (37-47); IG% 0.4 %; LYMPH % 26.4 %; LYMPH ABS # 1.34 K/uL (1.2-3.4); MEAN CELL VOLUME 93.1 fL (80-100); MEAN CORPUSCULAR HEMOGLOBIN 30.4 pg (25-34); MEAN CORPUSCULAR HGB CONC 32.6 g/dl (32-36); MEAN PLATELET VOLUME 9.6 fL (7.4-10.4); MONO % 8.9 %; NEUT % 54.8 %; PLATELET COUNT 155 K/uL (130-400); RED BLOOD COUNT 3.03 M/uL (4.2-5.4); WHITE BLOOD COUNT 5.07 K/uL (4.8-10.8)
[2017-03-15 05:27] LABS: PARTIAL THROMBOPLASTIN RATIO 2.6
[2017-03-15 05:50] LABS: BLOOD UREA NITROGEN 12 mg/dl (7-18); CALCIUM 8.4 mg/dl (8.5-10.1); CARBON DIOXIDE 31 mmol/L (21-32); CHLORIDE 103 mmol/L (98-107); CREATININE 0.86 mg/dl (0.60-1.20); GLUCOSE 116 mg/dl (70-99); SODIUM 138 mmol/L (136-145)
--- NOTE | 2017-03-15 07:07 | Family Medicine Progress Note ---
Progress Note Date of Service Mar 15, 2017. Subjective Pt evaluation today including: conversation w/ patient, physical exam, chart review, lab review, review of studies, review of inpatient medication list Pain: denies PO Intake: adequate Voiding: no voiding problems No acute events overnight. Patient denies CP, palpitaiton, SOB,. She still reports pain at incision s/p Left TKA and LLE edema. Constitutional: + weakness, No fever, No chills Respiratory: No cough, No wheezing, No shortness of breath Cardiovascular: + edema, No chest pain, No PND Abdomen: No pain, No nausea, No vomiting, No constipation Musculoskeletal: + problem reported (s/p L TKA) Female : + urinary frequency, No hematuria Skin: No rash Medications Current Inpatient Medications Medications (Trade) Dose Ordered Sig/[place] Route Start Time Stop Time Status Last Admin Dose Admin Ioversol (Optiray 320) 100 ml UD PRN IV 03/14/17 14:30 03/18/17 14:29 Calcium/Vitamin D (Caltrate Plus Tab) 2 tab QAM PO 03/15/17 09:00 04/14/17 08:59 Docusate Sodium (coLACE CAP) 100 mg BID PO 03/14/17 21:00 04/13/17 20:59 03/14/17 22:01 100 MG Ferrous Gluconate (Ferrous Gluconate Tab) 324 mg BIDM PO 03/15/17 07:30 04/14/17 07:59 Lisinopril (Zestril Tab) 20 mg QAM PO 03/15/17 09:00 04/14/17 08:59 Multivitamins (Multivitamin Tab) 1 tab QAM PO 03/15/17 09:00 04/14/17 08:59 Tramadol HCl (Ultram Tab) 50 mg Q6 PRN PO 03/14/17 19:15 04/13/17 19:14 03/14/17 22:00 50 MG Polyethylene (Miralax Powder Packet) 17 gm DAILY PO 03/15/17 09:00 04/14/17 08:59 Miscellaneous Information (Order Awaiting Action) 1 ea DAILY N/A 03/15/17 09:00 04/14/17 08:59 Levofloxacin 500 mg/Prmx 100 ml @ 100 mls/hr Q24H IV 03/15/17 20:00 03/19/17 19:59 Heparin Sodium/ Dextrose 500 ml @ 24 mls/hr [id number] PRN IV 03/14/17 21:15 04/13/17 21:14 03/14/17 21:58 20 MLS/HR Objective Vital Signs Date Time Temp Pulse Resp B/P (MAP) Pulse Ox O2 Delivery O2 Flow Rate FiO2 03/15/17 08:20 36.5 74 19 116/78 (91) 98 Nasal Cannula 2.0 03/15/17 04:01 36.7 68 20 121/72 (88) 96 Nasal Cannula 2.0 03/15/17 04:00 Nasal Cannula 2.0 03/15/17 00:02 Nasal Cannula 2.0 03/15/17 00:00 36.8 74 20 118/69 (85) 96 Nasal Cannula 2.0 03/14/17 21:04 36.9 100 20 127/86 96 Nasal Cannula 2.0 03/14/17 19:51 82 16 123/67 99 03/14/17 19:29 82 16 123/67 99 Nasal Cannula 2.0 03/14/17 19:27 79 03/14/17 15:36 77 20 111/68 95 Nasal Cannula 2.0 03/14/17 13:50 68 20 105/95 96 Room Air 03/14/17 12:27 88 Room Air 03/14/17 12:27 Nasal Cannula 2.0 03/14/17 12:07 78 03/14/17 11:58 93 Room Air 03/14/17 11:57 93 Room Air 03/14/17 11:36 36.7 79 20 154/90 93 Room Air Physical Exam Notes: GENERAL: alert, obese, no distress, NECK: supple, no nuchal rigidity, no adenopathy, non-tender LUNGS: Clear to auscultation. Normal chest wall mechanics HEART: no murmurs, S1 normal and S2 normal ABDOMEN: abdomen soft, non-tender, normo-active bowel sounds, no masses, no rebound or guarding. BACK: Back is symmetrical on inspection and there is no deformity, no midline tenderness, no CVA tenderness. SKIN: no rashes and no bruising UPPER EXTREMITIES: upper extremities are grossly normal. LOWER EXTREMITIES: LLE edema, warm to touch compared to right, Surgical wound C/D/I with amirah, no surrounding erythema or draiange, tender at incision NEURO EXAM: Normal sensorium, cranial nerves II-XII grossly intact, normal speech, no gross weakness of arms Laboratory Results Results Past 24 Hours Test 03/14/17 12:56 03/14/17 13:49 03/14/17 21:23 03/15/17 01:42 Range/Units White Blood Count 5.39 4.8-10.8 K/uL Red Blood Count 3.42 4.2-5.4 M/uL Hemoglobin 10.1 12.0-16.0 g/dL Hematocrit 31.6 37-47 % Mean Corpuscular Volume 92.4 80-100 fL Mean Corpuscular Hemoglobin 29.5 25-34 pg Mean Corpuscular Hemoglobin Concent 32.0 32-36 g/dl Platelet Count 162 130-400 K/uL Mean Platelet Volume 9.6 7.4-10.4 fL Neutrophils (%) (Auto) 67.5 % Lymphocytes (%) (Auto) 17.4 % Monocytes (%) (Auto) 6.9 % Eosinophils (%) (Auto) 7.8 % Basophils (%) (Auto) 0.0 % Neutrophils # (Auto) 3.64 1.4-6.5 K/uL Lymphocytes # (Auto) 0.94 1.2-3.4 K/uL Monocytes # (Auto) 0.37 0.11-0.59 K/uL Eosinophils # (Auto) 0.42 0-0.5 K/uL Basophils # (Auto) 0.00 0-0.2 K/uL RDW Standard Deviation 43.7 36.4-46.3 fL RDW Coefficient of Variation 12.8 11.5-14.5 % Immature Granulocyte % (Auto) 0.4 % Immature Granulocyte # (Auto) 0.02 0.00-0.02 K/uL Prothrombin Time 11.1 9.0-12.0 SECONDS Prothromb Time International Ratio 1.0 0.9-1.1 Activated Partial Thromboplast Time 27.3 37.2 21.0-31.0 SECONDS Partial Thromboplastin Ratio 1.1 1.4 D-Dimer 5010 0-500 ug/L FEU Sodium Level 138 136-145 mmol/L Potassium Level 4.1 3.5-5.1 mmol/L Chloride Level 102 98-107 mmol/L Carbon Dioxide Level 31 21-32 mmol/L Anion Gap 5.0 3-11 mmol/L Blood Urea Nitrogen 13 7-18 mg/dl Creatinine 1.00 0.60-1.20 mg/dl Estimated GFR () 68.5 Estimated GFR (Non- 59.1 BUN/Creatinine Ratio 13.4 10-20 Random Glucose 116 70-99 mg/dl Calcium Level 8.5 8.5-10.1 mg/dl Total Bilirubin 0.8 0.2-1 mg/dl Aspartate Amino Transf (AST/SGOT) 23 15-37 U/L Alanine Aminotransferase (ALT/SGPT) 22 12-78 U/L Alkaline Phosphatase 79 45-117 U/L Total Creatine Kinase 100 26-192 U/L Creatine Kinase MB 0.5 0.5-3.6 ng/ml Creatine Kinase MB Ratio 0.5 0-3.0 Troponin I < 0.015 < 0.015 0-0.045 ng/ml Pro-B-Type Natriuretic Peptide 401 0-900 pg/ml Total Protein 6.0 6.4-8.2 gm/dl Albumin 2.6 3.4-5.0 gm/dl Globulin 3.4 2.5-4.0 gm/dl Albumin/Globulin Ratio 0.8 0.9-2 Urine Color YELLOW Urine Appearance CLEAR CLEAR Urine pH 5.5 4.5-7.5 Urine Specific [place] 1.009 1.000-1.030 Urine Protein NEG NEG Urine Glucose (UA) NEG NEG Urine Ketones NEG NEG Urine Occult Blood NEG NEG Urine Nitrite POS NEG Urine Bilirubin NEG NEG Urine Urobilinogen NEG NEG Urine Leukocyte Esterase LARGE NEG Urine WBC (Auto) >30 0-5 /hpf Urine RBC (Auto) 0-4 0-4 /hpf Urine Hyaline Casts (Auto) 0 0-5 /lpf Urine Epithelial Cells (Auto) 0-5 0-5 /lpf Urine Bacteria (Auto) 4+ NEG Test 03/15/17 05:03 03/15/17 09:19 Range/Units White Blood Count 5.07 4.8-10.8 K/uL Red Blood Count 3.03 4.2-5.4 M/uL Hemoglobin 9.2 12.0-16.0 g/dL Hematocrit 28.2 37-47 % Mean Corpuscular Volume 93.1 80-100 fL Mean Corpuscular Hemoglobin 30.4 25-34 pg Mean Corpuscular Hemoglobin Concent 32.6 32-36 g/dl Platelet Count 155 130-400 K/uL Mean Platelet Volume 9.6 7.4-10.4 fL Neutrophils (%) (Auto) 54.8 % Lymphocytes (%) (Auto) 26.4 % Monocytes (%) (Auto) 8.9 % Eosinophils (%) (Auto) 9.3 % Basophils (%) (Auto) 0.2 % Neutrophils # (Auto) 2.78 1.4-6.5 K/uL Lymphocytes # (Auto) 1.34 1.2-3.4 K/uL Monocytes # (Auto) 0.45 0.11-0.59 K/uL Eosinophils # (Auto) 0.47 0-0.5 K/uL Basophils # (Auto) 0.01 0-0.2 K/uL RDW Standard Deviation 44.0 36.4-46.3 fL RDW Coefficient of Variation 12.9 11.5-14.5 % Immature Granulocyte % (Auto) 0.4 % Immature Granulocyte # (Auto) 0.02 0.00-0.02 K/uL Activated Partial Thromboplast Time 68.5 44.4 21.0-31.0 SECONDS Partial Thromboplastin Ratio 2.6 1.7 Sodium Level 138 136-145 mmol/L Potassium Level 4.0 3.5-5.1 mmol/L Chloride Level 103 98-107 mmol/L Carbon Dioxide Level 31 21-32 mmol/L Anion Gap 4.0 3-11 mmol/L Blood Urea Nitrogen 12 7-18 mg/dl Creatinine 0.86 0.60-1.20 mg/dl Est Creatinine Clear Calc Drug Dose 93.7 ml/min Estimated GFR () 82.2 Estimated GFR (Non- 70.9 BUN/Creatinine Ratio 14.0 10-20 Random Glucose 116 70-99 mg/dl Calcium Level 8.4 8.5-10.1 mg/dl Troponin I < 0.015 0-0.045 ng/ml Microbiology Results 03/14/17 Urine Culture - Preliminary, Resulted Gram Negative Bacilli Assessment and Plan 67 yo F with HTN, HLD, Hypothyroidism, currentlyu s/p L TKA presenting with palpitation, Hypoxic Resp failure, LLE edema, elevated D-dimer negative Doppler US Shantanu LE, CT inconclusive for PE on Heparin for presumed PE Hypoxic Resp Failure, Palpitation sec to Probable Acute provoked PE due to unidentified DVT - D-dimer elevated on arrival, CXR unremarkable - Chest CT (03/14): filling defect within medial segmental branch of the right middle lobe pulmonary artery. - Us Doppler LLE, RLE negative - Troponin x3 negative, - Palpitation resolved - F/u Echo today - Continue IV low dose heparin - O2 per protocol UTI - UA pos. nitrite, large leukocyte esterase, >30 WBC, 4+bact - Ucx consistent with Gram neg bacilli. - Continue Levaquin ( started due to multiple drug allergies) HTN; - continue lisinopril LE Edema, likely post surgical, s/p TKA DVT ruled out with Shantanu Dopplers. exam no consistent with cellulitis,. PT DVT prophylaxis: IV heparin Full code Dispo: tele PT/OT Continued [facility] stay due to: multiple IV medications needed Discharge planning: home with home health Resident Tracking Resident Involvement: Resident Care Provided Care Provided: Adult Hospital Medicine Reviewed: Pt Seen/Exam by Me History c/o left leg feeling tight and swollen would like to see ortho Constitutional: denies: fever Respiratory: negative: short of breath Cardiovascular: denies chest pain General Appearance: no apparent distress Respiratory: lungs clear, no respiratory distress Cardiovascular: regular rate, rhythm Extremities: other (left leg with mild edema. Knee post surgical wound healthy. amirah intact. no swelling/tenderness/drainage) Neurologic/Psychiatric: alert, oriented x 3 Skin Characteristics: warm/dry Assessment/Plan Resident Physician Supervision Note: I was present with Dr. Landry in bedside. I verified the diaz history and physical, reviewed labs and image studies, discussed the case with the resident and agree with the findings and care plan. Consult ortho. Spoke to Dr. Hurst - concern of bleeding and knee hematoma in first 2 wks of surgery with full anticoagulation. considering work up negative though CT with tiny filling defect, will switch her back to outpatient DVT prophylaxis.
--- NOTE | 2017-03-15 08:07 | DIAGNOSTIC IMAGING REPORT ---
RIGHT VENOUS DOPP LOWER EXT UNILAT CLINICAL HISTORY: 67 years-old Female presenting with rule out DVT Right. TECHNIQUE: Real-time grayscale and color and spectral Doppler ultrasound imaging of the veins of the right lower extremity was performed. Compression and augmentation were also utilized. COMPARISON: None. FINDINGS: Right: Common femoral vein: Patent. Femoral vein: Patent. Greater saphenous vein: Patent. Popliteal vein: Patent. Calf veins: Limited visualization. Other: None. IMPRESSION: No evidence of deep venous thrombosis. Electronically signed by: Ryan Shahid M.D. 03/15/2017 8:05 AM Dictated Date/Time: 03/15/2017 8:05 AM
[2017-03-15 08:20] VITALS: BP 116/78; PULSE 74; TEMP 36.5; O2SAT 98
[2017-03-15] MEDS ORDERED: MULTIVITAMIN TAB PO SCH (09:00)
[2017-03-15] MEDS ORDERED: LISINOPRIL 20 MG TAB PO SCH (09:00)
[2017-03-15] MEDS ORDERED: [UNRECOGNIZED DRUG - OTHER] SCH (09:00)
[2017-03-15] MEDS ORDERED: CALCIUM 600MG + VIT D 400 IU TAB PO SCH (09:00)
[2017-03-15] MEDS ORDERED: POLYETHYLENE (MIRALAX) 17 GM PACK PO SCH (09:00)
[2017-03-15] MEDS: DOCUSATE SODIUM 100 MG CAP PO SCH (09:22)
[2017-03-15] MEDS: FERROUS GLUCONATE 324 MG TAB PO SCH ×2 (09:22→16:27)
[2017-03-15 09:41] LABS: PARTIAL THROMBOPLASTIN RATIO 1.7
[2017-03-15] MEDS ORDERED: HEPARIN IV BOLUS 4,000 UNIT in SYRINGE 0 ML IV ONE (10:45)
[2017-03-15] MEDS: HEPARIN 25,000 UNIT/500ML D5W 500 ML IV PRN (11:13)
[2017-03-15 11:42] VITALS: BP 129/80; PULSE 72; TEMP 36.5; O2SAT 97
--- NOTE | 2017-03-15 11:49 | Clinical Documentation Query ---
HEIDI Meza : CLINICAL DOCUMENTATION QUERY Patient is a morbidly obese 67 year old female admitted s/p left TKA on 03/10 who noted palpitations and dropping oxygen saturations while at home and in the ED. In your clinical opinion is this patient being managed for: ( ) (Likely/Suspected/Probable) Acute provoked PE due to unidentified DVT ( ) Other explanation of clinical findings (Please Explain) ( ) Unable to determine (Please Define) ( ) Need to Discuss ( ) Not Agree The medical record reflects the following clinical findings, treatment, and risk factors. Clinical Indicators: As above Treatment: Labs, CT chest, US b/l lower extremities, echocardiogram, IV low dose Heparin, supplemental O2 Risk Factors: Recent surgery, immobility, obesity Please clarify and document your clinical opinion in the progress notes and discharge summary. Terms such as "probable", "suspected", "likely", "questionable", "possible", or "still to be ruled out" are acceptable. IF IN AGREEMENT, YOU MUST DOCUMENT ABOVE DIAGNOSTIC STATEMENT IN DAILY PROGRESS NOTES AND DISCHARGE SUMMARY. This document is not part of the patient's record. Thank You, Tunde Silva, RN [phone]
--- NOTE | 2017-03-15 11:49 | Clinical Documentation Query ---
Dr. SHEPARD [facility] : CLINICAL DOCUMENTATION QUERY Patient is a morbidly obese 67 year old female admitted s/p left TKA on 03/10 who noted palpitations and dropping oxygen saturations while at home and in the ED. In your clinical opinion is this patient being managed for: (x ) (Likely/Suspected/Probable) Acute provoked PE due to unidentified DVT ( ) Other explanation of clinical findings (Please Explain) ( ) Unable to determine (Please Define) ( ) Need to Discuss ( ) Not Agree The medical record reflects the following clinical findings, treatment, and risk factors. Clinical Indicators: As above Treatment: Labs, CT chest, US b/l lower extremities, echocardiogram, IV low dose Heparin, supplemental O2 Risk Factors: Recent surgery, immobility, obesity Please clarify and document your clinical opinion in the progress notes and discharge summary. Terms such as "probable", "suspected", "likely", "questionable", "possible", or "still to be ruled out" are acceptable. IF IN AGREEMENT, YOU MUST DOCUMENT ABOVE DIAGNOSTIC STATEMENT IN DAILY PROGRESS NOTES AND DISCHARGE SUMMARY. This document is not part of the patient's record. Thank You, Tunde Silva, RN [phone]
[2017-03-15] MEDS ORDERED: WARFARIN SOD 10 MG TAB PO ONE (14:30)
[2017-03-15] MEDS ORDERED: ENOXAPARIN 150 MG/1ML SYR SQ SCH (14:30)
[2017-03-15 14:57] LABS: HEMATOCRIT 30.3 % (37-47)
[2017-03-15 15:39] VITALS: BP 142/80; PULSE 80; TEMP 36.6; O2SAT 95
--- NOTE | 2017-03-15 16:20 | ECHOCARDIOGRAM REPORT ---
*NOTICE TO RECEIVING DEMOCRAT AGENCY This information is strictly Confidential and protected under [place] law. [place] law prohibits you from making any further disclosure of this information unless further disclosure is expressly permitted by the written consent of the person to whom it pertains or is authorized by law. A general authorization for the release of medical or other information is not sufficient for this purpose. Hospital accepts no responsibility if the information is made available to any other person, INCLUDING THE PATIENT. Interpretation Summary * Name: TESS STACK Study Date: 03/15/2017 01:56 PM BP: 129/80 mmHg * Patient Location: .2E\S\E207\S\1 HR: 72 * : 1950 (M/d/yyyy) Gender: Female Height: 63 in * Age: 67 yrs Ethnicity: CA Weight: 329 lb * Ordering Physician: Christine Burleson * Referring Physician: Self, Referred * Performed By: Anne Crow RDCS * * Reason For Study: PULMONARY EMBOLISM * BSA: 2.4 m2 * -- Conclusions -- * Left ventricular systolic function is normal. * No regional wall motion abnormalities noted. * Ejection Fraction = 55-60%. * No significant valvular pathology. Procedure Details * A complete two-dimensional transthoracic echocardiogram was performed (2D, M-mode, Doppler and color flow Doppler). Left Ventricle * The left ventricle is normal in size. * There is normal left ventricular wall thickness. * Ejection Fraction = 55-60%. * Left ventricular systolic function is normal. * No regional wall motion abnormalities noted. Right Ventricle * The right ventricle is grossly normal size. * The right ventricular systolic function is normal as assessed by tricuspid annular plane systolic excursion (TAPSE) (normal >1.5 cm). Atria * The left atrial size is normal. * Right atrial size is normal. * No ASD detected; PFO is not assessed. Mitral Valve * The mitral valve is grossly normal. * There is no mitral valve stenosis. * Significant mitral regurgitation is absent. Tricuspid Valve * The tricuspid valve is not well visualized, but is grossly normal. * There is no tricuspid stenosis. * Significant tricuspid regurgitation is absent. Aortic Valve * The aortic valve is trileaflet. * The aortic valve opens well. * No hemodynamically significant valvular aortic stenosis. * There is no significant aortic regurgitation. Pulmonic Valve * The pulmonary valve is not well seen, but the Doppler examination is normal without significant regurgitation or stenosis. Great Vessels * Borderline aortic root dilatation. * The pulmonary is not well visualized. Pericardium/Pleural * There is no pericardial effusion. Great Vessels * Normal inferior vena cava size and collapsability with sniff indicates a normal right atrial pressure of 3 mmHg MMode 2D Measurements and Calculations IVSd 1.1 cm IVSs 1.6 cm LVIDd 5.2 cm LVIDs 3.6 cm LVPWd 1.2 cm LVPWs 1.5 cm IVS/LVPW 0.97 FS 30.5 % EDV(Teich) 129.9 ml ESV(Teich) 55.1 ml EF(Teich) 57.5 % EDV(cubed) 141.1 ml ESV(cubed) 47.4 ml EF(cubed) 66.4 % % IVS thick 44.3 % % LVPW thick 29.1 % LV mass(C)d 235.6 grams LV mass(C)dI 98.6 grams/m\S\2 LV mass(C)s 219.0 grams LV mass(C)sI 91.6 grams/m\S\2 SV(Teich) 74.7 ml SI(Teich) 31.3 ml/m\S\2 SV(cubed) 93.7 ml SI(cubed) 39.2 ml/m\S\2 Ao root diam 3.5 cm Ao root area 9.8 cm\S\2 LA dimension 3.1 cm LA/Ao 0.88 LVAd ap4 33.2 cm\S\2 LVLd ap4 8.3 cm EDV(MOD-sp4) 110.8 ml EDV(sp4-el) 113.4 ml LVAs ap4 19.3 cm\S\2 LVLs ap4 7.1 cm ESV(MOD-sp4) 45.3 ml ESV(sp4-el) 44.5 ml EF(MOD-sp4) 59.1 % EF(sp4-el) 60.8 % LVAd ap2 24.4 cm\S\2 LVLd ap2 8.0 cm EDV(MOD-sp2) 63.0 ml EDV(sp2-el) 62.9 ml LVAs ap2 14.6 cm\S\2 LVLs ap2 7.1 cm ESV(MOD-sp2) 26.3 ml ESV(sp2-el) 25.5 ml EF(MOD-sp2) 58.3 % EF(sp2-el) 59.5 % LVLd %diff -2.82 % EDV(MOD-bp) 84.8 ml LVLs %diff 0.33 % ESV(MOD-bp) 34.5 ml EF(MOD-bp) 59.2 % SV(MOD-sp4) 65.4 ml SI(MOD-sp4) 27.4 ml/m\S\2 SV(MOD-sp2) 36.7 ml SI(MOD-sp2) 15.4 ml/m\S\2 SV(MOD-bp) 50.2 ml SI(MOD-bp) 21.0 ml/m\S\2 SV(sp4-el) 68.9 ml SI(sp4-el) 28.8 ml/m\S\2 SV(sp2-el) 37.4 ml SI(sp2-el) 15.7 ml/m\S\2 Doppler Measurements and Calculations MV E max mecca 91.2 cm/sec MV A max mecca 102.8 cm/sec MV E/A 0.89 MV dec time 0.22 sec Ao V2 max 187.1 cm/sec Ao max PG 14.0 mmHg Ao max PG (full) 6.3 mmHg LV V1 max PG 7.7 mmHg LV V1 max 138.9 cm/sec
--- NOTE | 2017-03-15 16:41 | Discharge Instructions ---
Discharge Instructions Date of Service Mar 15, 2017. Admission Reason for Admission: Hypoxia, Palpitations Discharge Discharge Diagnosis / Problem: Hypoxic resp Failure, UTI Discharge Goals Goal(s): Decrease discomfort, Improve function, Increase independence, Improve disease control, Improve nutritional status, Learn about illness, Diagnostic testing, Therapeutic intervention, Prevent Disease Progression, Specific goals Activity Recommendations Activity Limitations: resume your previous activity . Instructions / Follow-Up Instructions / Follow-Up Please follow up with Primary Care Provider within 1 wk Please take medication including Asprin 325 mg 2x daily as prescribed Call 911 for any of the following: You feel lightheaded, short of breath, and have chest pain. You cough up blood. You have a seizure. You have slurred speech, increased sleepiness, or problems seeing, talking, or thinking. You have weakness or cannot move your arm or leg on one side of your body. Seek care immediately if: You feel faint. You have a severe headache. Your heart is beating faster than normal. Current Hospital Diet Patient's current hospital diet: AHA Diet (Heart Healthy) Discharge Diet Recommended Diet: AHA Diet (Heart Healthy) Pending Studies Studies pending at discharge: no Medical Emergencies . Who to Call and When: Medical Emergencies: If at any time you feel your situation is an emergency, please call 911 immediately. . Non-Emergent Contact Non-Emergency issues call your: Primary Care Provider Call Non-Emergent contact if: you have a fever, your pain is not controlled, you have any medication questions . . "Provider Documentation" section prepared by Yaw Landry. . VTE Core Measure Inpt VTE Proph given/why not?: Other Anticoagulation (heparin)
[2017-03-15] MEDS ORDERED: LEVO500T19 PO (18:37)
[2017-03-15 18:43] VITALS: BP 142/80; PULSE 80; TEMP 36.6; O2SAT 95
[2017-03-15] MEDS ORDERED: LEVOFLOXACIN / D5W 500 MG in PREMIXED IN D5W 100 ML IV SCH (20:00)
--- NOTE | 2017-03-15 20:52 | Discharge Summary ---
Discharge Summary Date of Service Mar 15, 2017. (Yaw Landry MD) Discharge Summary Admission Date: Mar 14, 2017 at 19:15 Discharge Date: Mar 15, 2017 Discharge Disposition: Home Principal Diagnosis: Acute Hypoxia , UTI Immunizations: Have You Had Influenza Vaccine: Yes History of Tetanus Vaccine?: No History of Pneumococcal: No History of Hepatitis B Vaccine: No Procedures: Doppler US There is no sonographic evidence of deep venous thrombosisidentified in the left lower extremity. No evidence of deep venous thrombosis in RLE . SINGLE VIEW CHEST CLINICAL HISTORY: Dyspnea. FINDINGS: An AP, portable, upright chest radiograph is compared to study dated 02/09/2017. The examination is degraded by portable technique and patient rotation. The heart is top normal for projection. There is mild atherosclerotic calcification of the thoracic aorta. The pulmonary vascular structures noncongested. The lungs and pleural spaces are clear. No pneumothorax is seen. The skeletal structures are osteopenic. The bony thorax is grossly intact. IMPRESSION: No acute cardiopulmonary abnormality. CT ANGIOGRAM OF THE CHEST CLINICAL HISTORY: Dyspnea. Atypical chest pain. COMPARISON STUDY: Chest x-ray dated 03/14/2017. TECHNIQUE: Following the IV administration of 92 cc of Optiray 320, CT angiogram of the chest was performed from the upper abdomen to the thoracic inlet utilizing the pulmonary embolus protocol. Images are reviewed in the axial, sagittal, and coronal planes. 3-D MIPS images are created and assessed. IV contrast was administered without complication. A dose lowering technique was utilized adhering to the principles of ALARA. The examination is degraded by large body habitus, and by streak artifact from the body wall abutting the CT gantry. CT DOSE: 667.53 mGy.cm FINDINGS: Thyroid: Imaged portions of the thyroid gland are normal in size and attenuation. Thoracic aorta: There is atherosclerotic calcification of the thoracic aorta, which is normal in caliber and demonstrates standard 3-vessel arch anatomy. No dissection is seen. Pulmonary vasculature: The main pulmonary arteries are dilated suggesting pulmonary artery hypertension. There is a small filling defect suggested within a the segmental branch of the right middle lobe on axial image #138. No additional filling defects identified in main, lobar, or segmental pulmonary branches to suggest pulmonary embolus. Heart: The heart is mildly enlarged and without pericardial effusion. There are coronary artery calcifications. Lungs and pleural spaces: Evaluation of the lung parenchyma is modestly degraded by motion artifact. Dependent atelectasis is seen at the left lung base. There is no airspace consolidation identified typical for pneumonia. No pleural effusion is seen. The trachea and central airways are clear. Mediastinum: There is no mediastinal lymphadenopathy. Lola: Clear. Axillae: There is no axillary lymphadenopathy. Upper abdomen: There is a small hiatal hernia. Postoperative changes partially visualized stomach. Skeletal structures: The skeletal structures are osteopenic. Degenerative change is noted throughout the thoracic spine. No lytic or blastic bony lesions are seen. (Yaw Landry MD) Medication Reconciliation New Medications: Levofloxacin (Levaquin) 500 Mg Tab 1 TAB PO DAILY for 3 Days, #3 TAB Continued Medications: Acetaminophen (Sb Non-Aspirin Extra Stre) 500 Mg Tab 1000 MG PO Q8 for 30 Days, #180 TAB Take 3 times per day to lessen pain. Aspirin (Aspirin) 325 Mg Ectab 325 MG PO BID for 45 Days, #90 Take to prevent blood clots. Calcium/Vitamin D (Os-Brady 500 Plus D) Tab 2 TAB PO QAM, TAB Docusate Sodium (Colace) 100 Mg Cap 1 CAP PO BID, CAP Ferrous Gluconate (Ferrous Gluconate) 324 Mg Tab 324 MG PO BIDM for 30 Days, #60 TAB Take to restore blood count. Lisinopril (Prinivil) 20 Mg Tab 20 MG PO QAM, TAB Morphine Cont Rel (Ms Contin) 15 Mg Tab 15 MG PO Q12 for 10 Days, #20 TAB Take for 10 days to lessen pain. Multivitamin (Multivitamin) Tab 1 TAB PO QAM, TAB Polyethylene Glycol 3350 (Miralax) 1 Pow Pow 17 GM PO DAILY Tramadol HCl (Tramadol HCl) 50 Mg Tab 50-100 MG PO Q6 PRN for Pain, #40 TAB [Vitamin B-12] () 1000 MCG IM Q3 MONTHS Discontinued Medications: Clindamycin Hcl (Cleocin) 300 Mg Cap 600 MG PO UD PRN for RN for 10 Days, CAP DENTAL WORK Discharge Exam GENERAL: alert, obese, no distress, NECK: supple, no nuchal rigidity, no adenopathy, non-tender LUNGS: Clear to auscultation. Normal chest wall mechanics HEART: no murmurs, S1 normal and S2 normal ABDOMEN: abdomen soft, non-tender, normo-active bowel sounds, no masses, no rebound or guarding. BACK: Back is symmetrical on inspection and there is no deformity, no midline tenderness, no CVA tenderness. SKIN: no rashes and no bruising UPPER EXTREMITIES: upper extremities are grossly normal. LOWER EXTREMITIES: LLE edema, warm to touch compared to right, Surgical wound C/D/I with amirah, no surrounding erythema or draiange, tender at incision NEURO EXAM: Normal sensorium, cranial nerves II-XII grossly intact, normal speech, no gross weakness of arms (Yaw Landry MD) feeling well. Review of Systems: Constitutional: No fever Respiratory: No shortness of breath Cardiovascular: No chest pain Abdomen: No pain Physical Exam: General Appearance: no apparent distress Respiratory/Chest: lungs clear, no respiratory distress Cardiovascular: regular rate, rhythm Abdomen / GI: normal bowel sounds, non tender, soft Neurologic/Psychiatric: alert, oriented x 3 Skin: warm/dry (Christal Booth M.D.) Hospital Course H&P 67 y/o F with PMH of HTN, HLD, hypothyroidism s/p left TKA on 03/10 presented to the ER with c/o palpitations that started this morning . also c/o a funny feeling in the chest with numbness across the anterior chest but denied any CP, SOB, lightheadedness or dizziness. she had checked her pulse ox and noticed that her sats were dropping. also noted to have increased lower extremity swelling in bilateral feet but especially in the LLE. denied any fevers/chills, cough. has been using aspirin 325 mg BID postop for DVT prophylaxis. denies any h/o DVT but her sister had PE sec to DVT in LE after a injury and air travel. has some urinary hesitancy and retention but denied dysuria Hospital course During Hospital stay, D-dimer found to be elevated. CXR found to be unremarkable. Chest Ct showed filling defect within medial segmental branch of the Rt Middle lobe pulm. artery vs. artifact. SEVERINO U/S of LE were negative. Troponins were unremarkable. Though filling defect was not definitive for PE, patent was initially placed on Heparin infusion. Following dscussion with Orthopedics, the evidence for PE was not sufficient to risk post-operative bleeding risk. Heparin was stopped prior to discharge, She was sent home on ASA 325 Total Time Spent: Less than 30 minutes This includes examination of the patient, discharge planning, medication reconciliation, and communication with other providers. (Yaw Landry MD) Resident Physician Supervision Note: I was present with Dr. Landry in bedside. I verified the diaz history and physical, reviewed labs and image studies, discussed the case with the resident and agree with the findings and care plan. Total Time Spent: Greater than 30 minutes (40) (Christal Booth M.D.) Discharge Instructions Please refer to the electronic Patient Visit Report (Discharge Instructions) for additional information. (Yaw Landry MD) Additional Copies To Leyda Sinclair M.D.
--- NOTE | 2017-03-15 22:27 | ORTHOPEDIC CONSULTATION ---
DATE OF CONSULTATION: 03/15/2017 CHIEF COMPLAINT: Consult for postop total knee replacement. HISTORY OF PRESENT ILLNESS: The patient is a 67-year-old morbidly obese female who was just almost a week out from left knee replacement. She has done relatively well, but over the weekend she developed some palpitations and was admitted to the ER for possible pulmonary embolism. She has no known clotting disorder. She is morbidly obese. She is doing pretty well but has had increased swelling in her left leg over the past several days. Therapy has gone pretty well. The symptoms of palpitations have resolved. She has had an extensive workup. We were consulted for management of her right knee. The pain seems to be reasonably well controlled. PAST MEDICAL HISTORY: As per the admission H&P. OBJECTIVE: VITAL SIGNS: Temperature 36.6. Vital signs stable. GENERAL: Reveals obese, middle-aged female. She is sitting up in her bedside chair and looks pretty comfortable. EXTREMITIES: Examination of the left leg reveals it to be well aligned. The incision is clean, dry and intact. There is no apparent drainage. She struggles but can do a leg lift. She can dorsiflex and plantarflex her foot appropriately. There is a little bit of bruising below her leg. Her leg sizes look pretty symmetric. She is neurologically intact. Negative Homans. LABORATORY DATA: Her hemoglobin is 10.0. Hematocrit 30.3. Electrolytes are normal and stable. IMAGING STUDIES: She has had 2 ultrasound, both negative. She had a chest CT which shows no convincing evidence of pulmonary embolism. Chest x-ray also normal. ASSESSMENT: A 67-year-old white female about a week out from a left knee replacement with brief episode of chest palpitations of unclear etiology. Her workup has been extensively negative. She has got no clots in her leg based on 2 ultrasounds and her chest CT was negative for pulmonary embolism. In light of this, I do not think aggressive anticoagulation is appropriate. She is certainly at increased risk based on her size and the surgical intervention, but there is no signs of that clinically. Her EKG was normal, chest CT normal, and an ultrasound test negative. PLAN: My recommendation would be to resume physical therapy. Her leg size and swelling is pretty normal based on her size and the surgical intervention. I do think aggressive anticoagulation puts her at high risk for bleeding and hematoma in her knee which increases a risk of infection. If there is some convincing evidence of PE or DVT, then I think that needs treated but I do not feel there is such. In light of this, I would recommend continued aspirin twice a day or prophylactic dose of some type of anticoagulation such as Lovenox 30 mg twice a day or Xarelto. Any further questions can be directed to me at [phone].
== END 2017-03-15 19:20 | disposition home or self-care (01) | DRG 175 ==
LOC: EDBD 11:36 → C.EDC 11:37 → UNDOADMIN 19:15 → C.2E 19:15 → ENRESERV 19:27 → CANBEDREQ 03-15 18:30
PROVIDERS: ADMIT Family Medicine; ATTEND Family Medicine
DX: I26.99 Other pulmonary embolism without acute cor pulmonale (principal); J96.01 Acute respiratory failure with hypoxia; N39.0 Urinary tract infection, site not specified; Z68.43 Body mass index [BMI] 50.0-59.9, adult; R00.2 Palpitations; I10 Essential (primary) hypertension; E03.9 Hypothyroidism, unspecified; E66.01 Morbid (severe) obesity due to excess calories; E78.5 Hyperlipidemia, unspecified; Z79.82 Long term (current) use of aspirin; Z79.899 Other long term (current) drug therapy; Z96.652 Presence of left artificial knee joint

== ENCOUNTER → 2017-12-10 | Outpatient (CLI) | payer BC ==
[~2017-12-10] MED LIST changes: -CLIN300C2 PO; +DOCU-94 PO; -MORP-157 PO; +POLY335019 PO
--- NOTE | 2017-12-10 15:15 | MAMMOGRAPHY REPORT ---
BILATERAL DIGITAL SCREENING MAMMOGRAM TOMOSYNTHESIS WITH CAD: 12/10/2017 CLINICAL HISTORY: Routine screening. Patient has no complaints. TECHNIQUE: Breast tomosynthesis in addition to standard 2D mammography was performed. Current study was also evaluated with a Computer Aided Detection (CAD) system. COMPARISON: Comparison is made to exams dated: 12/09/2016 mammogram - [facility], mammogram, and 01/25/2014 mammogram - [facility]. BREAST COMPOSITION: The tissue of both breasts is almost entirely fatty. FINDINGS: No suspicious masses, calcifications, or areas of architectural distortion are noted in ei ther breast. There has been no significant interval change compared to prior exams. Scattered bilater al benign-appearing calcifications are not significantly changed. IMPRESSION: ACR BI-RADS CATEGORY 2: BENIGN There is no mammographic evidence of malignancy. A 1 year screening mammogram is recommended. The pa tient will receive written notification of the results. Approximately 10% of breast cancers are not detected with mammography. A negative mammographic report should not delay biopsy if a clinically suggestive mass is present. Violeta Hoff M.D. /:12/10/2017 12:44:53 Pig Machine Operator Helper: Sumaya ROWE)(Ella), [facility] letter sent: Normal 1/2 BI-RADS Code: ACR BI-RADS Category 2: Benign
== END | disposition home or self-care (01) ==
LOC: C.MAMM 10:34
PROVIDERS: ATTEND Family Medicine
DX: Z12.31 Encounter for screening mammogram for malignant neoplasm of breast (principal)

== ENCOUNTER 2023-01-23 07:31 | Inpatient (IN) ==
[2023-01-23] MEDS ORDERED: SODIUM CHLORIDE 0.9% 1000ML 500 ML IV SCH (08:00)
--- NOTE | 2023-01-23 08:05 | Emergency Department Note ---
History of Present Illness General Chief complaint: Urinary Symptoms Stated complaint: URINARY SYMPTOMS Time Seen by Provider: 01/23/23 07:51 Source: patient and family (Daughter who is at the bedside) Mode of arrival: ambulatory Limitations: no limitations History of Present Illness This patient comes in as described above she thinks she could have a UTI. She has had frequency nausea and was been up all night shaking. She denies any fall or trauma no headache. No chest pain or shortness of breath or cough. Denies abdominal or back pain. She has multiple allergies to medications that she is unsure of. No diarrhea. Home Medications Medication Instructions Recorded Confirmed Type cholecalciferol (vitamin D3) 25 25 mcg PO DAILY 10/13/22 01/23/23 History mcg (1,000 unit) capsule escitalopram oxalate 20 mg tablet 20 mg PO DAILY 10/13/22 01/23/23 History (Lexapro) furosemide 20 mg tablet (Lasix) 20 mg PO DAILY 10/13/22 01/23/23 History losartan 50 mg tablet 50 mg PO DAILY 10/13/22 01/23/23 History mecobalamin (vitamin B12) 10,000 10,000 mcg IM Q3M 10/13/22 01/23/23 History mcg solution for injection Allergies Allergy/AdvReac Type Severity Reaction Status Date / Time erythromycin base Allergy Severe ERYTHEMA, Verified 12/17/22 10:16 ANALPHYLAXIS Cephalosporins Allergy Intermediate HIVES Verified 12/17/22 10:16 Penicillins Allergy Intermediate HIVES Verified 12/17/22 10:16 Sulfa (Sulfonamide Allergy Mild RASH Verified 12/17/22 10:16 Antibiotics) cefaclor Allergy Unknown UNKNOWN Verified 12/17/22 10:16 Nitrate Analogues Allergy Unknown UNKNOWN Verified 12/17/22 10:16 nitrofurantoin AdvReac Severe INEFFECTIVE Verified 12/17/22 10:16 Past Med/Surg History Medical History Chronic SI joint pain Social History Smoking Status: Never smoker Hx Alcohol Use: Yes Hx Substance Use: No Communication Ability: Effective Beliefs That Will Affect Care: None Current Living Situation: Family Current Living Situation Comment: daughter lives upstairs current occupational status: retired Feels Safe at Home: Yes Safety Concerns: Feels Safe At This Time Assistive Devices: Cane Review of Systems A total of 10 systems reviewed and were otherwise negative Physical Exam Vital Signs Vital Signs - 24 hr 01/23/23 07:41 01/23/23 08:30 01/23/23 08:30 Temperature 37.4 C 38.1 C H Temperature Source Oral Oral Pulse Rate 96 H Pulse Rate [Apical] 65 Pulse Rhythm [Apical] Regular Respiratory Rate 20 18 Respiratory Effort / Characteristics Non-Labored Respiratory Depth Normal Blood Pressure [Right Arm] 137/81 Blood Pressure Mean [Right Arm] 99 Blood Pressure Position [Right Arm] Sitting Pulse Oximetry 90 88 L 88 L Oxygen Delivery Method Room Air Room Air Room Air Sepsis Recent Fever Within 48 Hours No Sepsis New/Unexplained Change in Mental Status N/A Sepsis Action Taken by Nursing No Action Required 01/23/23 08:35 Temperature Temperature Source Pulse Rate 90 Pulse Rate [Apical] Pulse Rhythm [Apical] Respiratory Rate Respiratory Effort / Characteristics Respiratory Depth Blood Pressure [Right Arm] Blood Pressure Mean [Right Arm] Blood Pressure Position [Right Arm] Pulse Oximetry Oxygen Delivery Method Sepsis Recent Fever Within 48 Hours Sepsis New/Unexplained Change in Mental Status Sepsis Action Taken by Nursing General: Well developed well nourished middle-age female who is ill-appearing holding emesis bag and gagging but in no respiratory distress in no acute distress, breathing comfortably on room air. Normal speech HEENT: Normal cephalic atraumatic. Pupils are equal round and reactive to light. Extraocular movements are intact. Oropharynx is pink with moist mucous membranes. No swelling of the mouth lips or tongue. Neck: Supple with a midline trachea. No meningeal signs or stiffness, no JVD or bruits. No Stridor. Chest: Clear to auscultation bilaterally. No wheezes or rhonchi. No increased work of breathing. Heart: Regular rate and rhythm without murmurs or gallops. Abdomen: Soft nontender, nondistended without rebound guarding or rigidity. Extremities: No cyanosis clubbing or edema. No calf tenderness or assymetry Spine/Back. Non tender to palpation. No CVA tenderness Skin: Good turgor. She does have a rash on her posterior central lumbar area it is circular Neurologic exam: Cranial nerves two through 12 are intact. Motor and sensation are intact and symmetrical throughout. Course Administered Medications Enoxaparin Sodium (Enoxaparin Inj 40 Mg/0.4 Ml Syr) 40 mg SQ Q24H LISANDRA Stop: 02/22/23 12:46 Last Admin: 01/23/23 14:13 Dose: 40 mg Documented By: MKG Escitalopram Oxalate (Escitalopram Oxalate 20 Mg Tab) 20 mg PO DAILY LISANDRA Stop: 02/22/23 12:46 Last Admin: 01/23/23 14:14 Dose: 20 mg Documented By: MKG Discontinued Medications Acetaminophen (Acetaminophen 325 Mg Tab) 650 mg PO NOW STA Stop: 01/23/23 09:45 Last Admin: 01/23/23 09:58 Dose: 650 mg Documented By: ACC Furosemide (Furosemide 20 Mg Tab) 20 mg PO NOW STA Stop: 01/23/23 10:56 Last Admin: 01/23/23 13:04 Dose: 20 mg Documented By: MKG Sodium Chloride (Nss 1000ml) 500 mls @ 999 mls/hr IV .Q31M LISANDRA Stop: 01/23/23 08:30 Last Infusion: 01/23/23 13:37 Dose: 0 mls/hr Documented By: Admin: 01/23/23 08:38 Dose: 999 mls/hr Documented By: ACC Levofloxacin/Dextrose (Levaquin/D5w) 750 mg in 150 mls @ 100 mls/hr IV NOW STA Stop: 01/23/23 10:14 Last Infusion: 01/23/23 13:37 Dose: 0 mls/hr Documented By: Admin: 01/23/23 09:58 Dose: 100 mls/hr Documented By: ACC Ondansetron HCl (Ondansetron Inj 2 Mg/Ml 2 Ml Vial) 4 mg IV NOW STA Stop: 01/23/23 08:27 Last Admin: 01/23/23 08:38 Dose: 4 mg Documented By: ACC Medical Decision Making Differential Diagnosis UTI, sepsis, dehydration, cardiac disease, electrolyte or metabolic abnormality, tickborne illness Medical Records Attestation: I reviewed the patient's medical records. Home Medications Current Medication List: was personally reviewed by me Laboratory Data Attestation: I reviewed the patient's lab results. 01/23/23 08:20 01/23/23 08:20 Lab Results 01/23/23 01/23/23 01/23/23 Range/Units 08:20 08:20 08:20 WBC 7.11 (4.8-10.8) K/ul RBC 3.87 L (4.20-5.40) M/uL Hgb 12.8 (12.0-16.0) g/dl Hct 37.1 (37.0-47.0) % MCV 95.9 (80.0-100.0) fL MCH 33.1 (25.0-34.0) pg MCHC 34.5 (32.0-36.0) g/dL RDW Std Deviation 42.5 (36.4-46.3) fL RDW Coeff of Bonnie 12.1 (11.5-14.5) % Plt Count 121 L (130-400) K/uL MPV 10.4 (9.4-12.4) fL Immature Gran % (Auto) 0.3 % Neut % (Auto) 85.1 % Lymph % (Auto) 10.5 % [place] % (Auto) 3.8 % Eos % (Auto) 0.0 % Baso % (Auto) 0.3 % Neut # (Auto) 6.05 (1.40-6.50) K/uL Lymph # (Auto) 0.75 L (1.2-3.4) K/uL [place] # (Auto) 0.27 (0.11-0.59) K/uL Eos # (Auto) 0.00 (0-0.50) K/uL Baso # (Auto) 0.02 (0-0.2) K/uL Immature Gran # (Auto) 0.02 (0.01-0.20) K/uL PT 12.4 H (9.0-12.0) Seconds INR 1.1 (0.9-1.1) APTT 30.5 (21.0-31.0) Seconds PTT Ratio 1.1 Sodium 134 L (136-145) mmol/L Potassium 3.6 (3.5-5.1) mmol/L Chloride 99 (98-107) mmol/L Carbon Dioxide 28 (21-32) mmol/L Anion Gap 7 (3-11) BUN 12 (6-23) mg/dl Creatinine 0.99 (0.6-1.2) mg/dl Est Cr Clr Drug Dosing 72.6 ml/min Est GFR ( Amer) 66.4 ml/min Est GFR (Non-Af Amer) 57.3 ml/min BUN/Creatinine Ratio 12.1 (10-20) Glucose 169 H (70-99(Fasting)) mg/dl Lactate (0.4-2.0) mmol/L Calcium 8.3 L (8.6-10.3) mg/dl Magnesium 1.8 (1.7-2.4) mg/dl Total Bilirubin 0.9 (0.2-1.0) mg/dl Direct Bilirubin 0.2 (0-0.2) mg/dl AST 41 H (13-39) U/L ALT 27 (7-52) U/L Alkaline Phosphatase 67 (34-104) U/L Troponin I High Sens 13.9 (0-14) pg/ml Total Protein 6.2 (6.0-8.3) gm/dl Albumin 3.4 (3.4-5.0) gm/dl Procalcitonin (0-0.5) ng/ml Urine Color Urine Appearance (Clear) Urine pH (4.5-7.5) Ur Specific Gem (1.000-1.030) Urine Protein (Negative) Urine Glucose (UA) (Negative) Urine Ketones (Negative) Urine Blood (Negative) Urine Nitrite (Negative) Urine Bilirubin (Negative) Urine Urobilinogen (Negative) Ur Leukocyte Esterase (Negative) Urine WBC (Auto) (0-5) /hpf Urine RBC (Auto) (0-4) /hpf U Hyaline Cast (Auto) (0-5) /lpf U Epithel Cells (Auto) (0-5) /lpf Urine Bacteria (Auto) (Negative) Anaplasma Smear See Comment Babesia Smear See Comment Lyme Disease IgG Ab (Negative) Lyme Disease IgM Ab (Negative) SARS-CoV-2 (PCR) (Negative) Influenza Type A (PCR) (Neg) Influenza Type B (PCR) (Neg) RSV (RT-PCR) (Neg) 01/23/23 01/23/23 01/23/23 Range/Units 08:20 08:20 08:50 WBC (4.8-10.8) K/ul RBC (4.20-5.40) M/uL Hgb (12.0-16.0) g/dl Hct (37.0-47.0) % MCV (80.0-100.0) fL MCH (25.0-34.0) pg MCHC (32.0-36.0) g/dL RDW Std Deviation (36.4-46.3) fL RDW Coeff of Bonnie (11.5-14.5) % Plt Count (130-400) K/uL MPV (9.4-12.4) fL Immature Gran % (Auto) % Neut % (Auto) % Lymph % (Auto) % [place] % (Auto) % Eos % (Auto) % Baso % (Auto) % Neut # (Auto) (1.40-6.50) K/uL Lymph # (Auto) (1.2-3.4) K/uL [place] # (Auto) (0.11-0.59) K/uL Eos # (Auto) (0-0.50) K/uL Baso # (Auto) (0-0.2) K/uL Immature Gran # (Auto) (0.01-0.20) K/uL PT (9.0-12.0) Seconds INR (0.9-1.1) APTT (21.0-31.0) Seconds PTT Ratio Sodium (136-145) mmol/L Potassium (3.5-5.1) mmol/L Chloride (98-107) mmol/L Carbon Dioxide (21-32) mmol/L Anion Gap (3-11) BUN (6-23) mg/dl Creatinine (0.6-1.2) mg/dl Est Cr Clr Drug Dosing ml/min Est GFR ( Amer) ml/min Est GFR (Non-Af Amer) ml/min BUN/Creatinine Ratio (10-20) Glucose (70-99(Fasting)) mg/dl Lactate 1.0 (0.4-2.0) mmol/L Calcium (8.6-10.3) mg/dl Magnesium (1.7-2.4) mg/dl Total Bilirubin (0.2-1.0) mg/dl Direct Bilirubin (0-0.2) mg/dl AST (13-39) U/L ALT (7-52) U/L Alkaline Phosphatase (34-104) U/L Troponin I High Sens (0-14) pg/ml Total Protein (6.0-8.3) gm/dl Albumin (3.4-5.0) gm/dl Procalcitonin 0.14 (0-0.5) ng/ml Urine Color Dark Yellow Urine Appearance Cloudy A (Clear) Urine pH 5.5 (4.5-7.5) Ur Specific Gem 1.021 (1.000-1.030) Urine Protein 1+ H (Negative) Urine Glucose (UA) Negative (Negative) Urine Ketones 1+ H (Negative) Urine Blood Negative (Negative) Urine Nitrite Positive A (Negative) Urine Bilirubin Negative (Negative) Urine Urobilinogen Negative (Negative) Ur Leukocyte Esterase 2+ H (Negative) Urine WBC (Auto) >30 H (0-5) /hpf Urine RBC (Auto) 0-4 (0-4) /hpf U Hyaline Cast (Auto) 5-10 H (0-5) /lpf U Epithel Cells (Auto) 0-5 (0-5) /lpf Urine Bacteria (Auto) 4+ H (Negative) Anaplasma Smear Babesia Smear Lyme Disease IgG Ab Negative (Negative) Lyme Disease IgM Ab Negative (Negative) SARS-CoV-2 (PCR) (Negative) Influenza Type A (PCR) (Neg) Influenza Type B (PCR) (Neg) RSV (RT-PCR) (Neg) 01/23/23 Range/Units 08:50 WBC (4.8-10.8) K/ul RBC (4.20-5.40) M/uL Hgb (12.0-16.0) g/dl Hct (37.0-47.0) % MCV (80.0-100.0) fL MCH (25.0-34.0) pg MCHC (32.0-36.0) g/dL RDW Std Deviation (36.4-46.3) fL RDW Coeff of Bonnie (11.5-14.5) % Plt Count (130-400) K/uL MPV (9.4-12.4) fL Immature Gran % (Auto) % Neut % (Auto) % Lymph % (Auto) % [place] % (Auto) % Eos % (Auto) % Baso % (Auto) % Neut # (Auto) (1.40-6.50) K/uL Lymph # (Auto) (1.2-3.4) K/uL [place] # (Auto) (0.11-0.59) K/uL Eos # (Auto) (0-0.50) K/uL Baso # (Auto) (0-0.2) K/uL Immature Gran # (Auto) (0.01-0.20) K/uL PT (9.0-12.0) Seconds INR (0.9-1.1) APTT (21.0-31.0) Seconds PTT Ratio Sodium (136-145) mmol/L Potassium (3.5-5.1) mmol/L Chloride (98-107) mmol/L Carbon Dioxide (21-32) mmol/L Anion Gap (3-11) BUN (6-23) mg/dl Creatinine (0.6-1.2) mg/dl Est Cr Clr Drug Dosing ml/min Est GFR ( Amer) ml/min Est GFR (Non-Af Amer) ml/min BUN/Creatinine Ratio (10-20) Glucose (70-99(Fasting)) mg/dl Lactate (0.4-2.0) mmol/L Calcium (8.6-10.3) mg/dl Magnesium (1.7-2.4) mg/dl Total Bilirubin (0.2-1.0) mg/dl Direct Bilirubin (0-0.2) mg/dl AST (13-39) U/L ALT (7-52) U/L Alkaline Phosphatase (34-104) U/L Troponin I High Sens (0-14) pg/ml Total Protein (6.0-8.3) gm/dl Albumin (3.4-5.0) gm/dl Procalcitonin (0-0.5) ng/ml Urine Color Urine Appearance (Clear) Urine pH (4.5-7.5) Ur Specific Gem (1.000-1.030) Urine Protein (Negative) Urine Glucose (UA) (Negative) Urine Ketones (Negative) Urine Blood (Negative) Urine Nitrite (Negative) Urine Bilirubin (Negative) Urine Urobilinogen (Negative) Ur Leukocyte Esterase (Negative) Urine WBC (Auto) (0-5) /hpf Urine RBC (Auto) (0-4) /hpf U Hyaline Cast (Auto) (0-5) /lpf U Epithel Cells (Auto) (0-5) /lpf Urine Bacteria (Auto) (Negative) Anaplasma Smear Babesia Smear Lyme Disease IgG Ab (Negative) Lyme Disease IgM Ab (Negative) SARS-CoV-2 (PCR) NEGATIVE (Negative) Influenza Type A (PCR) Negative (Neg) Influenza Type B (PCR) Negative (Neg) RSV (RT-PCR) Negative (Neg) Imaging Data Attestation: I personally reviewed and interpreted this imaging study as follows: My Impression: Chest x-rayno acute infiltrate, failure, pneumothorax seen Radiologist's Impression: Chest X-Ray 01/23/23 08:00 XR chest 1V portable HISTORY: Sepsis COMPARISON: Chest 03/14/2017. FINDINGS: A few bibasilar linear densities consistent with subsegmental atelectasis. Otherwise, no focal lung consolidations to suggest a pneumonia. No evidence for pulmonary edema. The cardiac silhouette remains borderline enlarged. No pleural effusions. No pneumothorax. There are calcifications within the aortic knob. IMPRESSION: No significant change compared to the prior study. No acute process. ACT 112: Negative or not required by law. Electronically signed by: Biju Anguiano M.D. 01/23/2023 9:32 AM Abdomen/Pelvis CT 01/23/23 09:[address] WITHOUT CONTRAST CT DOSE: 1496.99 mGy.cm HISTORY: Incontinence. Nausea. Urinary frequency. eval for obst uropathy TECHNIQUE: Multiaxial CT images of the abdomen and pelvis were performed without contrast. A dose lowering technique was utilized adhering to the principles of ALARA. COMPARISON STUDY: Abdomen and pelvis CT 05/20/2016. FINDINGS: Bibasilar linear densities favor subsegmental atelectasis are scarring. No pneumoperitoneum. No pneumatosis. No suspicious lytic are blastic osseous lesions. Prior mesh repair of a ventral hernia. Mild fat stranding wit hin the right inguinal region with a few mildly enlarged right inguinal lymph nodes. Dominant right inguinal lymph node on image 321 measures 14 mm in short axis diameter. These may be reactive. Prior David-en-Y gastric bypass. Cholecystectomy. The unenhanced liver, spleen, adrenal glands, and pancreas unremarkable. No retroperitoneal lymphadenopathy. Calcified plaque within the normal caliber abdominal aorta. Small bilateral peripelvic renal cysts are noted. No renal or ureteral calculi. No hydronephrosis. There is a lobular exophytic hypodense lesion within the left kidney which has increased in size. This measures 7.5 cm, previously measuring 5.1 cm. This is incompletely characters on this noncontrast study but favors a cyst. There is mild bilateral perinephric edema. No retroperitoneal or pelvic lymphadenopathy. There is mild bladder wall thickening. Prior hysterectomy. Suboptimal evaluation for bowel pathology due to the lack of intravenous and oral contrast. However, there is no definite bowel wall thickening or obstruction. IMPRESSION: 1. No renal or ureteral stones. No hydronephrosis. 2. Mild bladder wall thickening. Recommend correlation with urinalysis to exclude a cystitis. 3. Mild right inguinal lymphadenopathy with right inguinal fat stranding. This is nonspecific but could be reactive. 4. No definite bowel wall thickening or obstruction. 5. Additional findings as described above. ACT 112: Negative or not required by law. Electronically signed by: Biju Anguiano M.D. 01/23/2023 12:39 PM ECG Data Attestation: I personally reviewed and interpreted this ECG as follows: Indication: + nausea and + weakness Rate (beats per minute): 94 Rhythm: + normal sinus ECG Intervals/blocks: + Normal QRS, + Normal QT and + Normal DC ECG [place]: + Normal ECG ST segments: + Normal ST segments ECG Findings: no PACs or no PVCs Comparison ECG Date: from (03/14/17) Change: no significant change MDM Narrative This patient comes in as described above. She was placed in room B9. She is here for treatment and evaluation of feeling ill. She could have a UTI she also is a rash and could be a tickborne illness I am concerned that she could be septic with the shaking. I did a full sepsis type work-up. She is a very complex medical history as far as antibiotic allergies and I need to do some research to figure out what she has had reactions to in the meantime she was given IV fluids. I did consult the pharmacist who reviewed the case and recommended either Levaquin/Cipro or meropenem, informing she has had Levaquin before so I ordered Levaquin 750 mg IV. She had also been given Zofran 4 mg IV and IV fluid bolus. Her lactic and white count came back normal which was reassuring. EKG did not show any ischemic changes or ectopy. She has no significant electrolyte or metabolic abnormalities. Chest x-ray does not show congestive heart failure, pneumonia, pneumothorax. Her CAT scan shows no obstructive uropathy or kidney stone she does have some dilation of the bladder consistent with UTI. Given her symptoms with a fever the chills no vomiting I do think she needs to be admitted for IV antibiotics and further evaluation. I have discussed the case in consultation with the [facility] hospitalist team, Dr. Espinal, and she will observe/admitted for these measures. She did receive IV fluids she did not receive 30 cc/kg as she was hypoxemic and I was concerned about fluid overload of particular given the fact that her lactic acid was normal and her blood pressure was normal I felt she did not need the 30 cc/kg with concern for CHF Continuous cardiac monitoring: Orders placed in EMR for continuous cardiac monitoring: Upon my evaluation patient noted to be in normal sinus rhythm with a rate of 75 Impression & Plan Sepsis, Urinary tract infection, Nausea, Lab test negative for COVID-19 virus, Rigors Discharge Plan Visit Data Chief Complaint: Urinary Symptoms Stated Complaint: URINARY SYMPTOMS ED Provider: Tunde Powers Discharge Problem: Sepsis, Urinary tract infection, Nausea, Lab test negative for COVID-19 virus, Rigors Patient Disposition: Admitted As Inpatient Discharge Instructions Interventions: ED Discharge Assessment Last Done: 01/23/23 11:36
[2023-01-23] MEDS ORDERED: ONDANSETRON INJ 2 MG/ML 2 ML VIAL IV STA (08:26)
[2023-01-23] MEDS ORDERED: levoFLOXacin/D5W 750 MG/150 ML BAG IV STA (08:45)
[2023-01-23 09:00] LABS: Albumin Level 3.4 gm/dl (3.4-5.0); BUN Creatinine Ratio 12.1 (10-20); Bilirubin Direct 0.2 mg/dl (0-0.2); Bilirubin,Total 0.9 mg/dl (0.2-1.0); Calcium 8.3 mg/dl (8.6-10.3); Creatinine Clr Calc Pharmacy 72.6 ml/min; Est GFR (African American) 66.4 ml/min; Est GFR (Non-African American) 57.3 ml/min; Hematocrit (blood only) 37.1 % (37.0-47.0); Hemoglobin 12.8 g/dl (12.0-16.0); Magnesium 1.8 mg/dl (1.7-2.4); Mean Corpuscular Hemoglobin 33.1 pg (25.0-34.0); Mean Corpuscular Hgb Conc 34.5 g/dL (32.0-36.0); Mean Corpuscular Volume 95.9 fL (80.0-100.0); Mean Platelet Volume 10.4 fL (9.4-12.4); Platelet Count 121 K/uL (130-400); Potassium 3.6 mmol/L (3.5-5.1); RDW Coefficient of Variation 12.1 % (11.5-14.5); RDW Standard Deviation 42.5 fL (36.4-46.3); Red Blood Count 3.87 M/uL (4.20-5.40); Total Protein 6.2 gm/dl (6.0-8.3); White Blood Count 7.11 K/ul (4.8-10.8)
[2023-01-23 09:06] LABS: Troponin I High Sensitivity 13.9 pg/ml (0-14)
[2023-01-23 09:08] LABS: Appearance Urine Cloudy (Clear); Bacteria Urine Automated 4+ (Negative); Bilirubin Urine Negative (Negative); Blood Urine Negative (Negative); Color Urine Dark Yellow; Epithelial Cell Urine Auto 0-5 /lpf (0-5); Glucose Urine UA Negative (Negative); Ketones Urine 1+ (Negative); Leukocyte Esterase Urine 2+ (Negative); Nitrite Urine Positive (Negative); Protein Urine 1+ (Negative); RBC Urine Automated 0-4 /hpf (0-4); Specific Gravity Urine 1.021 (1.000-1.030); Urobilinogen Urine Negative (Negative); WBC Urine Automated >30 /hpf (0-5); pH Urine 5.5 (4.5-7.5)
[2023-01-23 09:11] LABS: INR 1.1 (0.9-1.1); Partial Thromboplastin Ratio 1.1; Partial Thromboplastin Time 30.5 Seconds (21.0-31.0); Prothrombin Time 12.4 Seconds (9.0-12.0)
[2023-01-23 09:14] LABS: Basophils # (auto) 0.02 K/uL (0-0.2); Basophils % (auto) 0.3 %; Immature Granulocytes # (auto) 0.02 K/uL (0.01-0.20); Immature Granulocytes % (auto) 0.3 %; Lymphocytes # (auto) 0.75 K/uL (1.2-3.4); Lymphocytes % (auto) 10.5 %; Monocytes # (auto) 0.27 K/uL (0.11-0.59); Monocytes % (auto) 3.8 %; Neutrophils # (auto) 6.05 K/uL (1.40-6.50); Neutrophils % (auto) 85.1 %
[2023-01-23 09:16] LABS: Procalcitonin 0.14 ng/ml (0-0.5)
[2023-01-23 09:22] LABS: Lyme Ab IgG w/WB Rflx Negative (Negative); Lyme Ab IgM w/WB Rflx Negative (Negative)
--- NOTE | 2023-01-23 09:33 | XRay Report ---
XR chest 1V portable HISTORY: Sepsis COMPARISON: Chest 03/14/2017. FINDINGS: A few bibasilar linear densities consistent with subsegmental atelectasis. Otherwise, no fo monae lung consolidations to suggest a pneumonia. No evidence for pulmonary edema. The cardiac silhouet te remains borderline enlarged. No pleural effusions. No pneumothorax. There are calcifications withi n the aortic knob. IMPRESSION: No significant change compared to the prior study. No acute process. ACT 112: Negative or not required by law. Electronically signed by: Biju Anguiano M.D. 01/23/2023 9:32 AM
[2023-01-23] MEDS ORDERED: ACETAMINOPHEN 325 MG TAB PO STA (09:44)
[2023-01-23 09:46] LABS: Influenza A virus by PCR Negative (Neg); Influenza B virus by PCR Negative (Neg); RSV by PCR Negative (Neg); SARS CoV2 RNA(COVID-19) Ceph NEGATIVE (Negative)
--- NOTE | 2023-01-23 10:22 | History & Physical Report ---
Date of Service January 23, 2023 Assessment & Plan (1) UTI (urinary tract infection): Plan: -Admit to med/tele on pulse oximetry -Currently stable on RA -Has had a week on increased urinary frequency and urinary incontinence, started to develop fever, nausea, and vomiting yesterday -Febrile on arrival to the ED, UA suggestive of UTI, no leukocytosis, lactate WNL, procal WNL -Patient had reported transient hypoxia in the high 80's RA; on my exam, on RA she was stable. Do not think she is truly hypoxic at this time and does not meet full criteria for sepsis -S/P one dose of Levaquin in the ED, patient has multiple abx allergies, will continue with daily levaquin for now as QTc is WNL -Follow blood and urine cultures -S/P 500 mL NSS in the ED, will hold additional IVF as she is stable and want to avoid volume overload as she has not been taking her lasix for the past 2 weeks -Monitor intake and output -SQ lovenox for DVT PPX -AM CBC, CMP, Mag -Will start her on clears with her nausea and vomiting (2) Hypoxia: Plan: -Patient had a few, transient episodes of hypoxia on RA while in the ED -Chest xray without focal pneumonia or signs of congestive failure, patient is asymptomatic -Pulse ox probe does not sit well on her finger on exam -Patient likely has some component and obesity hypoventilation syndrome and undiagnosed GRISEL -Asking nursing staff to change to a sticker pulse ox prob for more reliable reading -Will order incentive spirometry for now and continue to monitor on pulse oximetry ovenight (3) Nausea & vomiting: Plan: -Likely due to her UTI -Denies hematemesis -Prn IV zofran ordered as QTc is WNL (4) Hypertension: Plan: -Stable -Will continue daily lasix to try and help with her swelling and prevent congestive failure -Will hold losartan for now to prevent hypotension (5) Nonalcoholic fatty liver disease: Plan: -AST at 41 today, ALT WNL -Monitor am LFT's (6) Anxiety and depression: Plan: -Continue lexapro Plan The patient was discussed with Dr. Espinal at the time of the admission History of Present Illness Chief Complaint: Urinary symptoms, weakness Primary Care Provider: Leyda Sinclair MD Shashi is a 73 year old female with a PMH significant for HTN, anxiety, and depression who presented to the [facility] ED on 01/23/23 with complaints of urinary frequency, incontinence, nausea, and dizziness. In the ED the patient was noted to be febrile at 38.1, but otherwise stable. Labs were significant for a platelet count of 121, lymphocyte count of 0.75, corrected sodium of 135, AST of 41, and UA consistent with an acute UTI. Chest xray was read as "No significant change compared to the prior study. No acute process.". Prior to admission the patient was given a dose of levaquin, 500 mL NSS, a dose of Tylenol, and 4 mg IV zofran. At the time of the exam the patient was lying in bed in no acute distress with her daughter sitting bedside. The patient states that since Wednesday she has been experiencing in creased urinary frequency and in continence. She denies any specific dysuria but states that she started to develop fever, chills, nausea, and non-bloody emesis yesterday. She denies any recent chest pain, SOB, cough, new abd pain, diarrhea, melena, and recent trauma. She has chronic RUQ abd pain since having her gastric bypass surgery, she confirms she has no new abd pain. She has not taken her daily lasix for the past 2 weeks as it was making her have to urinate frequently, so she has been developing increased LE swelling. She has a living will and wishes to be a DNR/DNI; she would want her daughter to make medical decisions for her if she could not make them herself. Please refer to Dr. Espinal's attestation for any changes to the treatment plan Allergies Allergy/AdvReac Type Severity Reaction Status Date / Time erythromycin base Allergy Severe ERYTHEMA, Verified 12/17/22 10:16 ANALPHYLAXIS Cephalosporins Allergy Intermediate HIVES Verified 12/17/22 10:16 Penicillins Allergy Intermediate HIVES Verified 12/17/22 10:16 Sulfa (Sulfonamide Allergy Mild RASH Verified 12/17/22 10:16 Antibiotics) cefaclor Allergy Unknown UNKNOWN Verified 12/17/22 10:16 Nitrate Analogues Allergy Unknown UNKNOWN Verified 12/17/22 10:16 nitrofurantoin AdvReac Severe INEFFECTIVE Verified 12/17/22 10:16 Home Medications Medication Instructions Recorded Confirmed Type cholecalciferol (vitamin D3) 25 25 mcg PO DAILY 10/13/22 01/23/23 History mcg (1,000 unit) capsule escitalopram oxalate 20 mg tablet 20 mg PO DAILY 10/13/22 01/23/23 History (Lexapro) furosemide 20 mg tablet (Lasix) 20 mg PO DAILY 10/13/22 01/23/23 History losartan 50 mg tablet 50 mg PO DAILY 10/13/22 01/23/23 History mecobalamin (vitamin B12) 10,000 10,000 mcg IM Q3M 10/13/22 01/23/23 History mcg solution for injection Past Med/Surg History Medical History Chronic SI joint pain Social History Smoking Status: Never smoker Hx Alcohol Use: Yes Hx Substance Use: No Communication Ability: Effective Beliefs That Will Affect Care: None Current Living Situation: Family Current Living Situation Comment: daughter lives upstairs current occupational status: retired Feels Safe at Home: Yes Safety Concerns: Feels Safe At This Time Assistive Devices: Cane Physical Exam Physical Exam: Physical Exam: General: In no acute distress, stated age, morbidly obese, ill but non-toxic appearing HEENT: Normocephalic, atraumatic, no scleral icterus, pupils around round, symmetrical, and reactive to light, dry mucus membranes, trachea midline, no thyromegaly Chest/Pulm: No respiratory distress, symmetrical chest expansion, clear breath sounds throughout Cardiac: RRR, no murmurs noted Abdomen: Negative for ascites and bruising, normoactive bowel sounds, soft, mildly tender to palpation in the RUQ, negative washington's sign Musculoskeletal: Symmetrical and without signs of acute trauma, upper and lower extremities with full ROM, no atrophy, spasticity, or flaccidity Extremities: Radial, dorsalis pedis, and posterior tibial pulses are intact and symmetrical, 1+ edema noted in the BL LE's Skin: Warm, dry, no rashes , lesions, or scars noted Neuro: Alert and oriented to person, place, month, year, and president, no focal defects, CN II-XII tested and intact, no tremors noted Psych: No acute distress, calm and cooperative during the exam Results & Data Results & Data Vital Signs (Past 12 Hours) Vital Signs Temp Pulse Pulse Resp BP Pulse Ox O2 Del Method 01/23/23 08:35 90 01/23/23 08:30 88 L Room Air 01/23/23 08:30 38.1 C H 65 18 137/81 88 L Room Air 01/23/23 07:41 37.4 C 96 H 20 90 Room Air Laboratory Results Abnormal lab results 01/23/23 01/23/23 01/23/23 Range/Units 08:20 08:20 08:20 RBC 3.87 L (4.20-5.40) M/uL Plt Count 121 L (130-400) K/uL Lymph # (Auto) 0.75 L (1.2-3.4) K/uL PT 12.4 H (9.0-12.0) Seconds Sodium 134 L (136-145) mmol/L Glucose 169 H (70-99(Fasting)) mg/dl Calcium 8.3 L (8.6-10.3) mg/dl AST 41 H (13-39) U/L Urine Appearance (Clear) Urine Protein (Negative) Urine Ketones (Negative) Urine Nitrite (Negative) Ur Leukocyte Esterase (Negative) Urine WBC (Auto) (0-5) /hpf U Hyaline Cast (Auto) (0-5) /lpf Urine Bacteria (Auto) (Negative) 01/23/23 Range/Units 08:50 RBC (4.20-5.40) M/uL Plt Count (130-400) K/uL Lymph # (Auto) (1.2-3.4) K/uL PT (9.0-12.0) Seconds Sodium (136-145) mmol/L Glucose (70-99(Fasting)) mg/dl Calcium (8.6-10.3) mg/dl AST (13-39) U/L Urine Appearance Cloudy A (Clear) Urine Protein 1+ H (Negative) Urine Ketones 1+ H (Negative) Urine Nitrite Positive A (Negative) Ur Leukocyte Esterase 2+ H (Negative) Urine WBC (Auto) >30 H (0-5) /hpf U Hyaline Cast (Auto) 5-10 H (0-5) /lpf Urine Bacteria (Auto) 4+ H (Negative) Diagnostic Findings Chest X-Ray 01/23/23 08:00 XR chest 1V portable HISTORY: Sepsis COMPARISON: Chest 03/14/2017. FINDINGS: A few bibasilar linear densities consistent with subsegmental atelectasis. Otherwise, no focal lung consolidations to suggest a pneumonia. No evidence for pulmonary edema. The cardiac silhouette remains borderline enlarged. No pleural effusions. No pneumothorax. There are calcifications within the aortic knob. IMPRESSION: No significant change compared to the prior study. No acute process. ACT 112: Negative or not required by law. Electronically signed by: Biju Anguiano M.D. 01/23/2023 9:32 AM ECG Additional Comments: Normal sinus rhythm Normal ECG When compared with ECG of 14-MAR-2017 11:44, No significant change was found Code Status & VTE Plan Code Status DNR/DNI VTE Prophylaxis Plan VTE Prophylaxis will be ordered: Yes Supervising Physician Co-Signing Physician Notes I personally saw and examined the patient. I verified all diaz points and agree with Stan Causey PA-C with the following exceptions and/or additions: 73 year old female presents to the ER with urinary incontinence and frequency. UA consistent with infection. O/E A&Ox3, HS RRR, no murmurs, Chest CTAB, Abdo SNT, no CVA tenderness A/P UTI - suspect cause of her generalized weakness, CT with mild bladder wall thickening. Given prior allergies started on levaquin in the ER which appears reasonable as patient is not septic pending urine and blood culture results. PG Care Time/CCT Total # of Minutes Spent Total Time Spent with Patient: Total time spent is greater than 50% in coordination of care (as documented) at patient's floor/unit and/or counseling patient: Coding [place] [address] INT INP/OBS CARE 2/55MIN Patient Type Established Medical Decision Making Moderate Complexity Diagnoses UTI (urinary tract infection) N39.0 Hypoxia R09.02 Nausea & vomiting R11.2 Hypertension I10 Nonalcoholic fatty liver disease K76.0 Anxiety and depression F41.9; F32.A
[2023-01-23] MEDS ORDERED: FUROSEMIDE 20 MG TAB PO STA (10:55)
--- NOTE | 2023-01-23 12:41 | CT Scan Report ---
ABDOMEN AND PELVIS CT WITHOUT CONTRAST CT DOSE: 1496.99 mGy.cm HISTORY: Incontinence. Nausea. Urinary frequency. eval for obst uropathy TECHNIQUE: Multiaxial CT images of the abdomen and pelvis were performed without contrast. A dose lo wering technique was utilized adhering to the principles of ALARA. COMPARISON STUDY: Abdomen and pelvis CT 05/20/2016. FINDINGS: Bibasilar linear densities favor subsegmental atelectasis are scarring. No pneumoperitoneum . No pneumatosis. No suspicious lytic are blastic osseous lesions. Prior mesh repair of a ventral her kamaljit. Mild fat stranding within the right inguinal region with a few mildly enlarged right inguinal ly mph nodes. Dominant right inguinal lymph node on image 321 measures 14 mm in short axis diameter. The se may be reactive. Prior David-en-Y gastric bypass. Cholecystectomy. The unenhanced liver, spleen, ad renal glands, and pancreas unremarkable. No retroperitoneal lymphadenopathy. Calcified plaque within the normal caliber abdominal aorta. Small bilateral peripelvic renal cysts are noted. No renal or ure teral calculi. No hydronephrosis. There is a lobular exophytic hypodense lesion within the left kidne y which has increased in size. This measures 7.5 cm, previously measuring 5.1 cm. This is incompletel y characters on this noncontrast study but favors a cyst. There is mild bilateral perinephric edema. No retroperitoneal or pelvic lymphadenopathy. There is mild bladder wall thickening. Prior hysterecto my. Suboptimal evaluation for bowel pathology due to the lack of intravenous and oral contrast. Howev er, there is no definite bowel wall thickening or obstruction. IMPRESSION: 1. No renal or ureteral stones. No hydronephrosis. 2. Mild bladder wall thickening. Recommend correlation with urinalysis to exclude a cystitis. 3. Mild right inguinal lymphadenopathy with right inguinal fat stranding. This is nonspecific but cou ld be reactive. 4. No definite bowel wall thickening or obstruction. 5. Additional findings as described above. ACT 112: Negative or not required by law. Electronically signed by: Biju Anguiano M.D. 01/23/2023 12:39 PM
[2023-01-23] MEDS ORDERED: ONDANSETRON INJ 2 MG/ML 2 ML VIAL IV PRN (12:47)
[2023-01-23] MEDS: ENOXAPARIN INJ 40 MG/0.4 ML SYR SQ SCH (14:13)
[2023-01-23] MEDS: ESCITALOPRAM OXALATE 20 MG TAB PO SCH (14:14)
[2023-01-23] MEDS: ACETAMINOPHEN 325 MG TAB PO PRN (17:09)
[2023-01-24] MEDS: ACETAMINOPHEN 325 MG TAB PO PRN (03:07)
[2023-01-24 07:11] LABS: Basophils # (auto) 0.01 K/uL (0-0.2); Basophils % (auto) 0.3 %; Eosinophils # (auto) 0.03 K/uL (0-0.50); Eosinophils % (auto) 0.8 %; Hemoglobin 11.6 g/dl (12.0-16.0); Immature Granulocytes # (auto) 0.01 K/uL (0.01-0.20); Immature Granulocytes % (auto) 0.3 %; Lymphocytes # (auto) 0.65 K/uL (1.2-3.4); Lymphocytes % (auto) 17.5 %; Mean Corpuscular Hemoglobin 33.1 pg (25.0-34.0); Mean Corpuscular Hgb Conc 35.2 g/dL (32.0-36.0); Mean Corpuscular Volume 94.3 fL (80.0-100.0); Monocytes # (auto) 0.37 K/uL (0.11-0.59); Neutrophils # (auto) 2.64 K/uL (1.40-6.50); Neutrophils % (auto) 71.1 %; Platelet Count 118 K/uL (130-400); RDW Coefficient of Variation 12.5 % (11.5-14.5); White Blood Count 3.71 K/ul (4.8-10.8)
[2023-01-24 07:35] LABS: Albumin Globulin Ratio 1.2 (0.9-2); BUN Creatinine Ratio 14.6 (10-20); Bilirubin,Total 0.9 mg/dl (0.2-1.0); Calcium 8.3 mg/dl (8.6-10.3); Creatinine Clr Calc Pharmacy 86.7 ml/min; Est GFR (African American) 83.4 ml/min; Globulin 2.5 gm/dl (2.5-4.0); Magnesium 2.1 mg/dl (1.7-2.4); Potassium 3.2 mmol/L (3.5-5.1); Total Protein 5.5 gm/dl (6.0-8.3)
--- NOTE | 2023-01-24 07:59 | Hospitalist Progress Note ---
Date of Service January 24, 2023 Assessment & Plan (1) Sepsis: (2) Urinary tract infection: (3) Nausea: Plan Shashi Ace is a 73 year-old female with past medical history of HTN, anxiety, and depression who presented to the [facility] ED on 01/23/23 with complaints of urinary frequency, incontinence, nausea, and dizziness. UTI (urinary tract infection) Patient has had a week on increased urinary frequency and urinary incontinence, started to develop fever, nausea, and vomiting on 01/22. -Febrile on arrival to the ED, UA suggestive of UTI, no leukocytosis, lactate WNL, procal WNL -S/P one dose of Levaquin in the ED. -Patient has multiple abx allergies, will continue with daily Levaquin for now. QTc is WNL -Follow blood and urine cultures -Urine growing gram negative bacilli Hypoxia -Patient had a few, transient episodes of hypoxia on RA while in the ED, improved with supplemental oxygen. Currently stable on room air. -Chest xray without focal pneumonia or signs of congestive failure. -Suspect some element of obesity hypoventilation syndrome and undiagnosed GRISEL -Encourage use of incentive spirometer Nausea & vomiting -Symptoms likely secondary to UTI -Prn IV zofran ordered as QTc is WNL -Nausea resolved today, tolerating food Hypertension -Stable -Will continue daily lasix to try and help with her swelling and prevent congestive failure -Will hold losartan for now to prevent hypotension Nonalcoholic fatty liver disease -AST at 33 today, ALT WNL Anxiety and depression -Continue lexapro FENa: Heart Healthy VTE Prophylaxis: Lovenox Code Status: DNR/DNI Dispo: Med/Tele Admission and Anticipated Discharge Date Admission Date: January 23, 2023 Supervising Physician Co-Signing Physician Notes Resident Physician Supervision Note: I independently interviewed and examined the patient and verified the diaz history and physical, reviewed labs and image studies and agree with resident findings and care plan. Subjective Patient seen and examined at bedside. No acute events overnight. States she is feeling better today compared to when she presented to the ED. No more nausea/dry heaving. Notes that the only symptom she had initially was increased urinary frequency (incontinent of urine at baseline), denies dysuria. States she had not taken her Lasix in the past few weeks, had been prescribed to take it every other day. Review of Systems Review of Systems: As per above Physical Exam Constitutional: + obese, cooperative and comfortable; no acute distress Eyes: Anicteric sclerae. ENMT: External ears and nose normal. Moist mucous membranes. Respiratory: normal respiratory effort, lungs clear to auscultation Gastrointestinal (Abdomen): Abdomen soft, nontender Skin: no rashes, warm and dry Neurologic: moves all extremities Psychiatric: A+Ox3, euthymic affect Genitourinary: PureWick catheter in place Results & Data Results & Data Vital Signs (Past 12 Hours) Vital Signs Temp Pulse Pulse Resp BP Pulse Ox O2 Del Method 01/24/23 07:00 36.6 C 65 18 90/54 L 95 Room Air 01/24/23 03:09 36.7 C 72 18 113/76 96 Nasal Cannula 01/23/23 22:20 65 01/23/23 20:52 71 01/23/23 22:42 36.8 C 68 18 112/71 95 Nasal Cannula 01/23/23 20:38 36.8 C 70 18 102/69 94 Nasal Cannula O2 Flow Rate 01/24/23 07:00 01/24/23 03:09 2 01/23/23 22:20 01/23/23 20:52 01/23/23 22:42 2 01/23/23 20:38 2 Resident Activity Tracking Resident Involvement: Resident Care Provided Care Provided: Adult Hospital Medicine (1) Sepsis Sepsis acute organ dysfunction status: unspecified Sepsis type: sepsis due to unspecified organism Qualified Code(s): A41.9 - Sepsis, unspecified organism (2) Urinary tract infection Hematuria presence: without hematuria Urinary tract infection type: acute cystitis Qualified Code(s): N30.00 - Acute cystitis without hematuria
[2023-01-24] MEDS: ESCITALOPRAM OXALATE 20 MG TAB PO SCH (08:06)
[2023-01-24] MEDS ORDERED: POTASSIUM CHLORIDE CRTAB 20 MEQ TABCR PO STA (08:19)
[2023-01-24] MEDS: FUROSEMIDE 20 MG TAB PO SCH (09:35)
[2023-01-24] MEDS ORDERED: levoFLOXacin 500 MG TAB PO SCH (11:00)
[2023-01-24] MEDS: ENOXAPARIN INJ 40 MG/0.4 ML SYR SQ SCH (11:40)
--- NOTE | 2023-01-25 06:02 | Electrocardiogram Report ---
Test Reason : Blood Pressure : / mmHG Vent. Rate : 094 BPM Atrial Rate : 094 BPM P-R Int : 144 ms QRS Dur : 114 ms QT Int : 340 ms P-R-T Axes : 043 010 056 degrees QTc Int : 425 ms Normal sinus rhythm Incomplete right bundle branch block When compared with ECG of 14-MAR-2017 11:44, No significant change was found Confirmed by Marbin Emerson ([id number]) on 01/25/2023 6:02:13 AM Referred By: REFERRED SELF Confirmed By:Marbin Emerson
[2023-01-25 06:40] LABS: Albumin Globulin Ratio 1.2 (0.9-2); Albumin Level 3.1 gm/dl (3.4-5.0); BUN Creatinine Ratio 16.9 (10-20); Basophils # (auto) 0.01 K/uL (0-0.2); Basophils % (auto) 0.3 %; Bilirubin,Total 0.6 mg/dl (0.2-1.0); Calcium 8.6 mg/dl (8.6-10.3); Creatinine Clr Calc Pharmacy 92.8 ml/min; Eosinophils # (auto) 0.12 K/uL (0-0.50); Eosinophils % (auto) 3.3 %; Est GFR (Non-African American) 77.7 ml/min; Globulin 2.5 gm/dl (2.5-4.0); Hematocrit (blood only) 35.3 % (37.0-47.0); Immature Granulocytes # (auto) 0.01 K/uL (0.01-0.20); Immature Granulocytes % (auto) 0.3 %; Lymphocytes # (auto) 1.08 K/uL (1.2-3.4); Lymphocytes % (auto) 30.1 %; Magnesium 2.2 mg/dl (1.7-2.4); Mean Corpuscular Hemoglobin 32.1 pg (25.0-34.0); Mean Corpuscular Volume 94.4 fL (80.0-100.0); Mean Platelet Volume 10.6 fL (9.4-12.4); Monocytes # (auto) 0.34 K/uL (0.11-0.59); Monocytes % (auto) 9.5 %; Neutrophils # (auto) 2.03 K/uL (1.40-6.50); Neutrophils % (auto) 56.5 %; Platelet Count 131 K/uL (130-400); Potassium 3.8 mmol/L (3.5-5.1); RDW Coefficient of Variation 12.2 % (11.5-14.5); RDW Standard Deviation 42.6 fL (36.4-46.3); Red Blood Count 3.74 M/uL (4.20-5.40); Total Protein 5.6 gm/dl (6.0-8.3); White Blood Count 3.59 K/ul (4.8-10.8)
[2023-01-25] MEDS ORDERED: diphenhydrAMINE Capsule 25 MG CAP PO PRN (07:24)
[2023-01-25] MEDS: FUROSEMIDE 20 MG TAB PO SCH (08:38)
[2023-01-25] MEDS: ESCITALOPRAM OXALATE 20 MG TAB PO SCH (08:38)
[2023-01-25] MEDS ORDERED: cefTRIAXone SODIUM 2,000 MG in DEXTROSE 5% 50 ML IV SCH (09:00)
[2023-01-25] MEDS ORDERED: CEFDINIR 300 MG CAP PO SCH (10:00)
[2023-01-25] MEDS: ENOXAPARIN INJ 40 MG/0.4 ML SYR SQ SCH (12:35)
[2023-01-25] MEDS ORDERED: CEFDINIR 300 MG CAP PO STA (16:20)
--- NOTE | 2023-01-25 17:21 | Discharge Summary ---
Date of Service January 25, 2023 Admission HPI Per Admitting Provider Shashi is a 73 year old female with a PMH significant for HTN, anxiety, and depression who presented to the [facility] ED on 01/23/23 with complaints of urinary frequency, incontinence, nausea, and dizziness. In the ED the patient was noted to be febrile at 38.1, but otherwise stable. Labs were significant for a platelet count of 121, lymphocyte count of 0.75, corrected sodium of 135, AST of 41, and UA consistent with an acute UTI. Chest xray was read as "No significant change compared to the prior study. No acute process.". Prior to admission the patient was given a dose of levaquin, 500 mL NSS, a dose of Tylenol, and 4 mg IV zofran. At the time of the exam the patient was lying in bed in no acute distress with her daughter sitting bedside. The patient states that since Wednesday she has been experiencing in creased urinary frequency and in continence. She denies any specific dysuria but states that she started to develop fever, chills, nausea, and non-bloody emesis yesterday. She denies any recent chest pain, SOB, cough, new abd pain, diarrhea, melena, and recent trauma. She has chronic RUQ abd pain since having her gastric bypass surgery, she confirms she has no new abd pain. She has not taken her daily lasix for the past 2 weeks as it was making her have to urinate frequently, so she has been developing increased LE swelling. She has a living will and wishes to be a DNR/DNI; she would want her daughter to make medical decisions for her if she could not make them herself. Please refer to Dr. Espinal's attestation for any changes to the treatment plan Admission Exam Per Admitting Provider Physical Exam: General:In no acute distress, stated age, morbidly obese, ill but non-toxic appearing HEENT:Normocephalic, atraumatic, no scleral icterus, pupils around round, symmetrical, and reactive to light, dry mucus membranes, trachea midline, no thyromegaly Chest/Pulm:No respiratory distress, symmetrical chest expansion, clear breath sounds throughout Cardiac:RRR, no murmurs noted Abdomen:Negative for ascites and bruising, normoactive bowel sounds, soft, mildly tender to palpation in the RUQ, negative washington's sign Musculoskeletal:Symmetrical and without signs of acute trauma, upper and lower extremities with full ROM, no atrophy, spasticity, or flaccidity Extremities:Radial, dorsalis pedis, and posterior tibial pulses are intact and symmetrical, 1+ edema noted in the BL LE's Skin:Warm, dry, no rashes , lesions, or scars noted Neuro:Alert and oriented to person, place, month, year, and president, no focal defects, CN II-XII tested and intact, no tremors noted Psych:No acute distress, calm and cooperative during the exam Principal Diagnosis UTI, concern for ascending infection Discharge Exam Constitutional: well appearing, no acute distress HEENT: normocephalic, no conjunctival injection CV: regular rhythm, regular rate, no murmur, minimal bilateral LE edema Respiratory: Clear to auscultation bilaterally. No rhonchi, wheezes, or crackles. No increased work of breathing MSK: no gross deformities noted Skin: warm, dry, no rashes Neuro: alert, oriented, no FND noted Discharge Data Allergies Allergy/AdvReac Type Severity Reaction Status Date / Time erythromycin base Allergy Severe ERYTHEMA, Verified 12/17/22 10:16 ANALPHYLAXIS Cephalosporins Allergy Intermediate HIVES Verified 12/17/22 10:16 Penicillins Allergy Intermediate HIVES Verified 12/17/22 10:16 Sulfa (Sulfonamide Allergy Mild RASH Verified 12/17/22 10:16 Antibiotics) cefaclor Allergy Unknown UNKNOWN Verified 12/17/22 10:16 Nitrate Analogues Allergy Unknown UNKNOWN Verified 12/17/22 10:16 nitrofurantoin AdvReac Severe INEFFECTIVE Verified 12/17/22 10:16 Consultations 01/23/23 10:20 ED Decision to Admit Stat Ordered Studies 01/23/23 09:59 CT stones [CT abd pelvis wo con] Stat IMPRESSION: 1. No renal or ureteral stones. No hydronephrosis. 2. Mild bladder wall thickening. Recommend correlation with urinalysis to exclude a cystitis. 3. Mild right inguinal lymphadenopathy with right inguinal fat stranding. This is nonspecific but could be reactive. 4. No definite bowel wall thickening or obstruction. 5. Additional findings as described above. Hospital Course (1) Sepsis: (2) Urinary tract infection: (3) Nausea: Plan Pt is a 73 year-old female with past medical history of HTN, anxiety, and depression who presented to the [facility] ED on 01/23/23 with complaints of urinary frequency, incontinence, nausea, and dizziness. UTI (urinary tract infection) with ascending infection Patient has had a week of increased urinary frequency and urinary incontinence and started to develop fever, nausea, and vomiting on 01/22. 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 Currently stable on room air. -Chest xray without focal pneumonia or signs of congestive failure -Suspect some element of obesity hypoventilation syndrome and undiagnosed GRISEL -Recommend outpatient sleep study Nausea & vomiting -Symptoms likely secondary to UTI -Resolved prior to discharge; tolerating normal diet w/o issue Hypertension -Continue outpatient lasix and losartan Nonalcoholic fatty liver disease -AST at 33 today, ALT WNL Anxiety and depression -Continue lexapro FENa: Heart Healthy VTE Prophylaxis: lovenox Code Status: DNR/DNI Dispo: home Total Time Total Time Spent Total Time Spent (In Minutes): as per attending Discharge Plan Discharge Items Patient Disposition: Home - Self-Care Reason For Visit: UTI, GENERALIZED WEAKNESS Discharge Diagnosis: Urinary tract infection Activity: Per Instructions section Non-emergency contact: Primary Care Provider Call non-emergency contact if: you have any medication questions, your pain is not controlled and your temperature is above 101 Follow-up/Referrals: Leyda Sinclair MD [Primary Care Provider] - Diet: Regular Addtl Attending Provider Instructions: Dear Shashi, You came to the hospital because of urinary frequency and incontinence symptoms, along with weakness and were admitted to the hospital for management of a urinary tract infection complicated by sepsis. You received broad-spectrum antibiotics and other medications to keep her comfortable. We also gave you fluids to stabilize you. Once your urine culture results returned, we adjusted your antibiotic regimen to specifically treat the causative agent. We observed you clinically as your symptoms improved. Now that you are able to tolerate oral antibiotics, we feel that you are ready to be discharged home. 1. We are sending you home on a medication called cefdinir. Please take cefdinir 300 mg twice a day for 9 days. 2. A follow-up appointment has been made with your PCP, Dr. Sinclair. You will be contacted by their office to confirm this date. If you do not hear from her office, you may contact them at [phone]. 3. If you develop abdominal pain that does not improve, have a fever, and/or abdominal pain, contact your PCP. If you are unable to contact your PCP, you should come to the emergency room for further evaluation. It is been a pleasure to care for you here [facility]. If you have any questions or concerns about your care, you may reach out to us at [phone]. Pending Studies at Discharge: No Stand-Alone Forms: My [facility], Smoking Cessation Medications and DC Order Prescriptions: New cefdinir 300 mg capsule 300 mg PO BID 9 Days Qty: 18 0RF Continued cholecalciferol (vitamin D3) 25 mcg (1,000 unit) capsule 25 mcg PO DAILY escitalopram oxalate [Lexapro] 20 mg tablet 20 mg PO DAILY mecobalamin (vitamin B12) 10,000 mcg recon soln 10,000 mcg IM Q3M losartan 50 mg tablet 50 mg PO DAILY furosemide [Lasix] 20 mg tablet 20 mg PO DAILY Discharge Orders: Discharge Order (Routine); Ordered 01/25/23 Ordered By: Suzie Larson Admission Data Admit Date/Time: 01/23/23 10:23 Attending Provider: Leonidas Bowie Admit Provider: Bradly Espinal Primary Care Provider: Leyda Sinclair Other Providers: Bradly Espinal Other Interventions: Discharge Summary Assessment (RN) Last Done: 01/25/23 18:06 Supervising Physician Co-Signing Physician Notes I personally examined the patient and verified all diaz points of history and exam, discussed case, and agree with decision making with Dr Larson Feeling better, feeling up to going home, she wonders if her allergies were ever real eitherrelates most of the came about whenever she had encephalitis at about 14 years old, and she really wonders how much were reactions to antibiotics versus how much was just the course of her illness. With that in mind, she was willing to give trial to oral cephalosporinsand thus far has tolerated a dose of cefdinir just fine. We discussed a second dose to ensure no reaction, and then home later todayshe likes this plan. Vitals noted, in general she is awake and alert pleasant no distress. HEENT normocephalic atraumatic mucous membranes moist. Breathing unlabored no accessory muscle use good effort. Skin shows no rashes no pallor or icterus. Neuro without focal deficits. Pyelonephritis/sepsisfortunately improving nicelysepsis probably present on admission (heart rate and temperature), now resolvedstable for home, course of therapy with cefdinir. Agree with patient that allergy referral makes sense to try to eliminate even more of her unlikely allergies. Otherwise as above Resident Activity Tracking Resident Involvement: Resident Care Provided Care Provided: Adult Hospital Medicine
--- NOTE | 2023-01-25 18:40 | Billing Data ---
Date of Service January 25, 2023 Coding Level of Care Code 40232 IN/OBS DISCH 30 MIN/LESS
[2023-01-27 05:07] LABS: Babesia microti DNA Not Detected (Not Detected)
== END 2023-01-25 22:02 | disposition home or self-care (01) | DRG 872 ==
LOC: ED 07:31 → 2N 10:23 → SUATTDRO 10:23 → 2N 11:36